=== PATIENT | male | born 1950 | race Caucasian/White ===

== ENCOUNTER 2017-04-08 16:15 | Emergency (ER) | payer MEDICARE ==
[~2017-04-08] VITALS: Ht 182.9 cm; Wt 98.0 kg
[~2017-04-08 16:15] MED LIST: ACYC5OIN TOP; ALBU17IN INH; AMIO20TA PO; AMLO2.5T PO; AMOX875T2 PO; ATOR40TA PO; AVEL1TAB PO; AZEL0.1S3; BISO5TAB5 PO; CARD120C3 PO; CORD200T PO; DIGO0.25 PO; DILT120C82 PO; DILT120T PO; DILT12SRCA PO; DILT60TA PO; ELIQ2.5T PO; ELIQ5TAB PO; FOLI400T PO; IRON65TA PO; LATA5OPD OU; LISI-542 PO; LISI10TA4 PO; LORA10TA2 PO; MONT10TA2 PO; OMEP20CA3 PO; PRED10TA PO; REFR1DRO8 OU; SIMV40TA2 PO; SPIR1CAP INH; SYMB16INH INH; THEO1CAP2 PO; THEO1CAP5 PO; THEO1TAB3 PO; THEOPHYLLINE E400 MG PO; VITA100066 PO; VITMTA PO; XANA0.5T PO
[2017-04-08 17:01] LABS: BASO % 0.6 % (0.0-1.0); EOS # 0.2 K/mm3 (0.0-0.50); LARGE UNSTAINED CELL # 0.1 K/mm3 (0.0-0.4); LARGE UNSTAINED CELL % 1.6 % (0.0-4.0); LYMPH # 1.5 K/mm3 (1.5-4.5); LYMPH % 18.9 % (24.0-44.0); MEAN CORPUSCULAR HEMOGLOBIN 31.3 pg (27.0-33.0); MEAN CORPUSCULAR HGB CONC 32.6 g/dl (32.0-36.5); MEAN CORPUSCULAR VOLUME 96.1 fl (80.0-96.0); MONO # 0.5 K/mm3 (0.0-0.8); MONO % 6.5 % (0.0-5.0); NEUTROPHILS # 5.1 K/mm3 (1.8-7.7); NEUTROPHILS % 69.4 % (36.0-66.0); PLATELET COUNT, AUTOMATED 166 k/mm3 (150-450); RED CELL DISTRIBUTION WIDTH 14.3 % (11.5-14.5); WHITE BLOOD COUNT 7.3 K/mm3 (4.0-10.0)
[2017-04-08 17:26] LABS: ALBUMIN 3.8 GM/DL (3.2-5.2); ALBUMIN/GLOBULIN RATIO 1.19 (1.00-1.93); ALKALINE PHOSPHATASE 70 U/L (45-117); ALT/SGPT 55 U/L (12-78); ANION GAP 4 MEQ/L (8-16); AST/SGOT 22 U/L (15-37); BILIRUBIN,DIRECT 0.1 MG/DL (0.0-0.2); BILIRUBIN,TOTAL 0.4 MG/DL (0.2-1.0); BLOOD UREA NITROGEN 16 MG/DL (7-18); CALCIUM LEVEL 9.4 MG/DL (8.8-10.2); CARBON DIOXIDE LEVEL 34 MEQ/L (21-32); CHLORIDE LEVEL 101 MEQ/L (98-107); CREATININE FOR GFR 1.09 MG/DL (0.70-1.30); GLOMERULAR FILTRATION RATE > 60.0 (>49); GLUCOSE, FASTING 115 MG/DL (80-110); POTASSIUM SERUM 4.2 MEQ/L (3.5-5.1); SODIUM LEVEL 139 MEQ/L (136-145)
--- NOTE | 2017-04-08 17:28 | REP ---
ABDOMINAL SERIES: Supine and erect views of the abdomen and pelvis demonstrate no free air and no evidence for small bowel obstruction. There is moderate fecal material in the transverse and right colon. Metallic clips are seen in the right upper quadrant. There are mild degenerative changes of the spine. An accompanying view of the chest demonstrates chronic fibrotic changes, bilaterally with no evidence of acute infiltrate. There is a right central venous catheter with the tip in the superior vena cava. Heart is not enlarged. Left dual lead pacemaker is again noted unchanged in position. IMPRESSION: Moderate fecal material in the transverse and right colon. No free air or small bowel obstruction. Chronic changes in the lungs as discussed above. Signed by William Espinosa MD 04/08/2017 07:50 P
[2017-04-08] MEDS ORDERED: MIRA3350 PO (17:54)
[2017-04-08] MEDS ORDERED: MAGNESIUM CITRATE 300 ML BTL PO ONE (18:00)
[2017-04-08 18:15] VITALS: BP 129/89
== END 2017-04-08 18:16 | disposition home or self-care (01) ==
LOC: M ED 16:59
DX: K59.00 Constipation, unspecified (principal); I10 Essential (primary) hypertension; E78.5 Hyperlipidemia, unspecified; F41.9 Anxiety disorder, unspecified; Z87.442 Personal history of urinary calculi; G47.30 Sleep apnea, unspecified; Z85.118 Personal history of other malignant neoplasm of bronchus and lung; Z95.0 Presence of cardiac pacemaker; Z87.891 Personal history of nicotine dependence; Z79.899 Other long term (current) drug therapy

== ENCOUNTER → 2017-04-22 | Outpatient (CLI) | payer MEDICARE ==
[~2017-04-22] MED LIST changes: +AMIO200T PO; -AMIO20TA PO; -ATOR40TA PO; +ATOR40TA75 PO; -AVEL1TAB PO; +AVEL1TAB3 PO; +MIRA3350 PO; +THEO400T PO; -THEOPHYLLINE E400 MG PO
[2017-04-22 13:42] LABS: ALBUMIN/GLOBULIN RATIO 1.29 (1.00-1.93); ALKALINE PHOSPHATASE 64 U/L (45-117); ALT/SGPT 52 U/L (12-78); ANION GAP 5 MEQ/L (8-16); AST/SGOT 22 U/L (15-37); BILIRUBIN,TOTAL 0.5 MG/DL (0.2-1.0); BLOOD UREA NITROGEN 19 MG/DL (7-18); CALCIUM LEVEL 9.4 MG/DL (8.8-10.2); CARBON DIOXIDE LEVEL 34 MEQ/L (21-32); CHLORIDE LEVEL 102 MEQ/L (98-107); CHOLESTEROL LEVEL 128 MG/DL (<200); CREATININE FOR GFR 1.15 MG/DL (0.70-1.30); GLOMERULAR FILTRATION RATE > 60.0 (>49); GLUCOSE, FASTING 98 MG/DL (80-110); POTASSIUM SERUM 4.7 MEQ/L (3.5-5.1); SODIUM LEVEL 141 MEQ/L (136-145); TOTAL PROTEIN 7.1 GM/DL (6.4-8.2); TRIGLYCERIDES LEVEL 76 MG/DL (<150)
== END ==
LOC: M WUC 10:23
PROVIDERS: ATTEND Physician Assistant Medical
DX: I47.1 Supraventricular tachycardia (principal); I25.10 Atherosclerotic heart disease of native coronary artery without angina pectoris

== ENCOUNTER 2018-09-21 15:31 | Emergency (ER) | payer MEDICARE ==
[2018-09-21] MEDS: ALBUTEROL SULFATE 2.5 MG/0.5 ML INH NEB SOLN INH (16:20)
[2018-09-21] MEDS: IPRATROPIUM 0.5MG/ALBUTEROL 2.5MG INH SOL UD 3ML (DUONEB)(J7620) NEB (16:21)
[2018-09-21 16:23] LABS: ABG BASE EXCESS 5.2 (-2.0-2.0); ABG O2 SATURATION 98.1 % (95.0-99.0); ABG PARTIAL PRESSURE CO2 56.3 mmHg (35.0-45.0); ABG STANDARD HCO3 29.2 MEQ/L (22.0-26.0); ABG TOTAL CO2 33.8 MEQ/L (23.0-31.0); ABG pH (ARTERIAL) 7.373 UNITS (7.350-7.450)
[2018-09-21 16:33] LABS: BASO % 0.4 % (0.0-1.0); EOS # 0.2 10^3/uL (0.0-0.50); EOS % 2.5 % (0.0-3.0); HEMATOCRIT 41.5 % (42.0-52.0); HEMOGLOBIN 13.5 g/dl (13.5-17.5); IMMATURE GRANULOCYTE % 1.1 % (0-3.0); LYMPH # 0.6 10^3/uL (1.5-4.5); LYMPH % 8.2 % (24.0-44.0); MEAN CORPUSCULAR HEMOGLOBIN 31.8 pg (27.0-33.0); MEAN CORPUSCULAR HGB CONC 32.5 g/dl (32.0-36.5); MEAN CORPUSCULAR VOLUME 97.6 fl (80.0-96.0); MONO # 0.8 10^3/uL (0.0-0.8); MONO % 10.8 % (0.0-5.0); NEUTROPHILS # 5.5 10^3/uL (1.8-7.7); PLATELET COUNT, AUTOMATED 209 10^3/uL (150-450); RED BLOOD COUNT 4.25 10^6/uL (4.30-6.10); RED CELL DISTRIBUTION WIDTH 13.6 % (11.5-14.5); WHITE BLOOD COUNT 7.2 10^3/uL (4.0-10.0)
[2018-09-21] MEDS: methylPREDNISolone INJ 125 MG/2 ML VIAL (J2930) IV (16:54)
[2018-09-21 17:12] LABS: INFLUENZA A AMPLIFICATION NEGATIVE (NEGATIVE); INFLUENZA B AMPLIFICATION NEGATIVE (NEGATIVE)
[2018-09-21 17:13] LABS: LACTIC ACID SEPSIS PROTOCOL 1.3 MMOL/L (0.4-2.0)
[2018-09-21 17:20] LABS: ALBUMIN 3.1 GM/DL (3.2-5.2); ALBUMIN/GLOBULIN RATIO 0.91 (1.00-1.93); ALKALINE PHOSPHATASE 74 U/L (45-117); ALT/SGPT 39 U/L (12-78); ANION GAP 4 MEQ/L (8-16); AST/SGOT 17 U/L (7-37); BILIRUBIN,DIRECT 0.1 MG/DL (0.0-0.2); BILIRUBIN,TOTAL 0.5 MG/DL (0.2-1.0); BLOOD UREA NITROGEN 21 MG/DL (7-18); CARBON DIOXIDE LEVEL 35 MEQ/L (21-32); CHLORIDE LEVEL 100 MEQ/L (98-107); CK-MB VALUE MASS < 1.0 NG/ML (<3.6); CPK CREATINE PHOSPHOKINASE 42 U/L (39-308); CREATININE FOR GFR 1.01 MG/DL (0.70-1.30); GLOMERULAR FILTRATION RATE > 60.0 (>42); GLUCOSE, FASTING 164 MG/DL (70-100); MB/CK RELATIVE INDEX 2.38 (< OR =4); NT-PRO BNP 110 PG/ML (<125); POTASSIUM SERUM 4.8 MEQ/L (3.5-5.1); SODIUM LEVEL 139 MEQ/L (136-145); THYROID STIMULATING HORMONE 0.564 uIU/ML (0.358-3.740); THYROXINE (T4) 9.8 UG/DL (4.5-12.0); TOTAL PROTEIN 6.5 GM/DL (6.4-8.2); TROPONIN I < 0.02 NG/ML (< 0.10)
[2018-09-21] MEDS ORDERED: ISOVUE-370 76% 100ML VIAL (Q9967) As Ordered (18:32)
[2018-09-21] MEDS: CEFUROXIME SODIUM 1.5 GM in D5W MINI-BAG PLUS 50 ML IV (21:14)
== END 2018-09-21 22:36 | disposition home or self-care (01) ==
LOC: M ED 15:31
DX: J44.1 Chronic obstructive pulmonary disease with (acute) exacerbation (principal); C34.90 Malignant neoplasm of unspecified part of unspecified bronchus or lung; R91.8 Other nonspecific abnormal finding of lung field; I48.91 Unspecified atrial fibrillation; Z99.81 Dependence on supplemental oxygen; Z87.442 Personal history of urinary calculi; Z87.891 Personal history of nicotine dependence; Z85.46 Personal history of malignant neoplasm of prostate; Z79.899 Other long term (current) drug therapy; Z79.51 Long term (current) use of inhaled steroids
CPT/HCPCS: Q9967

== ENCOUNTER 2020-03-18 20:30 | Inpatient (IN) | payer MEDICARE ==
[~2020-03-18] VITALS: Ht 182.9 cm; Wt 94.5 kg
[~2020-03-18 20:30] MED LIST changes: -AMLO2.5T PO; +AMLO2.5T3 PO; +BISO5TAB14 PO; -BISO5TAB5 PO; +CEFU50TA PO; -DILT120C82 PO; +DILT1CAP PO; +LATA0.0013 OU; -LATA5OPD OU; -LORA10TA2 PO; +LORA10TA3 PO; -MONT10TA2 PO; +MONT10TA4 PO; +OMEP1CAP73 PO; -OMEP20CA3 PO; +PRED-351 PO; -PRED10TA PO; -SIMV40TA2 PO; +SIMV40TA20 PO; -THEO1TAB3 PO; +THEO200T12 PO
[2020-03-18] MEDS ORDERED: ATORVASTATIN 20 MG TAB PO SCH (21:00)
[2020-03-18] MEDS ORDERED: LATANOPROST 0.005% OPHTH SOLN 2.5 ML OU SCH (21:00)
[2020-03-18] MEDS ORDERED: VITAMIN D 1,000 INTERNATIONAL UNITS TABLET PO SCH (21:00)
[2020-03-18 21:15] LABS: BASO # 0.1 10^3/uL (0.0-0.2); BASO % 0.6 % (0.0-1.0); EOS # 0.3 10^3/uL (0.0-0.5); EOS % 4.3 % (0.0-3.0); HEMOGLOBIN 14.8 g/dl (13.5-17.5); LYMPH # 1.8 10^3/uL (1.5-5.0); MEAN CORPUSCULAR HGB CONC 32.2 g/dl (32.0-36.5); MEAN CORPUSCULAR VOLUME 96.4 fl (80.0-96.0); MONO # 0.8 10^3/uL (0.0-0.8); MONO % 9.4 % (0.0-5.0); NEUTROPHILS % 63.3 % (36.0-66.0); PLATELET COUNT, AUTOMATED 165 10^3/uL (150-450); RED BLOOD COUNT 4.77 10^6/uL (4.30-6.10)
[2020-03-18 21:48] LABS: ALBUMIN 4.1 GM/DL (3.2-5.2); ALT/SGPT 34 U/L (12-78); BILIRUBIN,DIRECT 0.2 MG/DL (0.0-0.2); BILIRUBIN,TOTAL 0.5 MG/DL (0.2-1.0); BLOOD UREA NITROGEN 19 MG/DL (7-18); CALCIUM LEVEL 9.1 MG/DL (8.8-10.2); CARBON DIOXIDE LEVEL 33 MEQ/L (21-32); CHLORIDE LEVEL 102 MEQ/L (98-107); CK-MB VALUE MASS 1.3 NG/ML (<3.6); CPK CREATINE PHOSPHOKINASE 64 U/L (39-308); CREATININE FOR GFR 1.05 MG/DL (0.70-1.30); DIGOXIN LEVEL 0.9 NG/ML (0.5-2.0); GLOMERULAR FILTRATION RATE > 60.0 (>42); GLUCOSE, FASTING 117 MG/DL (70-100); MB/CK RELATIVE INDEX 2.03 (< OR =4); POTASSIUM SERUM 4.2 MEQ/L (3.5-5.1); SODIUM LEVEL 141 MEQ/L (136-145); THEOPHYLLINE LEVEL 10.5 UG/ML (10.0-20.0); TOTAL PROTEIN 7.3 GM/DL (6.4-8.2); TROPONIN I < 0.02 NG/ML (< 0.10)
[2020-03-18] MEDS ORDERED: AMIODARONE HCL 150 MG in IV 1 EA IV STA (22:20)
[2020-03-18] MEDS ORDERED: ELIQ5TAB PO (22:54)
[2020-03-18] MEDS ORDERED: DIGO0.123 PO (22:54)
[2020-03-19] MEDS ORDERED: AMIODARONE HCL 150 MG in IV 1 EA IV STA (00:38)
[2020-03-19] MEDS ORDERED: XALA0.007 OU (01:28)
[2020-03-19] MEDS ORDERED: VITAD1000T PO (01:28)
[2020-03-19] MEDS ORDERED: VENTAER INH (01:28)
[2020-03-19] MEDS ORDERED: MUCI30TA5 PO (01:31)
[2020-03-19] MEDS ORDERED: MULTCAP PO (01:31)
--- NOTE | 2020-03-19 01:32 | HPEPDOC ---
[facility] Medical History & Physical Date of Admission March 19, 2020 Date of Service: March 19, 2020 Attending Physician: Nani Duval MD History and Physical CHIEF COMPLAINT: Palpitations HISTORY OF PRESENT ILLNESS: Patient is a 69-year-old male with past medical history of atrial fibrillation with pacemaker, COPD oxygen dependent, hyperlipidemia, GERD, solitary kidney, history of stage IV lung cancer in remission who presented to [facility] emergency room after having chest palpitations and fluctuating heart rates. Patients says his HR has been fluctuating over the past several days. HR was 60 then up to 130's, irregular. Patient has a PM and he knows that when his heart rate fluctuates he needs to be seen. This is what brought him in today. He was seen within the last 2 weeks in regards his pacemaker and at that time it checked out okay. Patient states that his balance is not as great as it used to be, mainly due to neuropathy patient but this is not an acute issue. The patient has COPD and states to have chronic shortness of breath and cough. He has not noticed a change with the chronic cough, occasionally productive of a yellowish- colored sputum. ROS belowl In the ER, HR as high as 120. Given amiodarone 150 mg IV x 2, diltiazem 60 mg x 2. HR remained 115-120. ECG showed atrial fib with RVR, RBBB with no acute changes when compared to last on file. CXR showed no acute cardiopulmonary concerns. Troponin neg, CBC/BMP were unremarkable. There was concern for his PM not functioning appropriately. Dr. Byrnes, satellite television installer, is the patient's regular satellite television installer and he was contacted, case was discussed. HR 120's on the bedside monitor but now asymptomatic. Patient as admitted atrial fibrillation with RVR, requiring pacemaker reprogramming. REVIEW OF SYSTEMS: CONSTITUTIONAL: Denies lack of energy, unexplained weight gain or weight loss, loss of appetite, fever, night sweats EYES: Denies eye drainage, eye pain, visual changes, dry/irritated eye EARS, NOSE, MOUTH, THROAT: Denies difficulty hearing, ringing in ears, mouth sores, loose teeth, sore throat, facial numbness or pain NECK: Denies swollen glands CARDIOVASCULAR: Denies chest pains, swelling of feet or legs, pain in legs with walking RESPIRATORY: Denies shortness of breath, night sweats, wheezing, sputum production, oxygen at home, coughing up blood, cough lasting > 1 month GASTROINTESTINAL: Denies abdominal pain, constipation, bloody stool, diarrhea, heartburn, nausea, vomiting GENITOURINARY: Denies painful urination, bloody urine, frequent urination, urgency, leaking urine, impotence MUSCULOSKELETAL: Denies joint pain, muscle pain, leg swelling INTEGUMENTARY: Denies rash, itching, new skin lesion, change in existing skin lesion, hair loss or increase, breast changes. NEUROLOGICAL: Denies headaches, dizziness, difficulty walking, numbness or tingling PSYCHIATRIC: Denies depression, recurrent bad thoughts, mood swings, hallucinations PAST MEDICAL HISTORY: 1. Atrial fibrillation with PM, last PM check approx 1-2 weeks ago 2. COPD on 2 L NC at rest, with activity can go up to 10 L NC 3. HLD 4. Dry eyes 5. Glaucoma 6. GERD 7. Solitary kidney 8. Hx of Stage 4 lung cancer s/p chemotherapy and radiation PAST SURGICAL HISTORY: 1. Prostectomy 2. Right nephrectomy 3. Kidney stone removal 4. Right lung biopsy FAMILY HISTORY: Father: CHF, CAD. at 83 y/o Mother: colon cancer. at 72 y/o Siblings: Brother-kidney disease. 54 y/o. SOCIAL HISTORY: Smoker for 45 years, 1-2 PPD. Quit 10 years ago. Social alcohol use. Denies illicit drug use. PCP- [place] Charlie. 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 [facility]. Heme/Onc- [facility]. Lives alone in the local area. Full Code. HCP- Mary See ALLERGIES: Please see below. HOME MEDICATIONS: Please see below. PHYSICAL EXAMINATION: CONSTITUTIONAL: No acute distress, resting comfortably, AAO x 3 EYES: PERRLA, EOM intact HENT, MOUTH: Normocephalic, atraumatic, moist mucous membranes, NECK: SUPPLE, no JVD, no lymphadenopathy, no carotid bruit CV: irregularly irregular rhythm, tachycardic, S1S2 normal, no murmurs/rubs/gallops CHEST: Pacemaker RESPIRATORY: Clear to auscultation bilaterally, no rales/rhonchi/wheezes GI: BS positive in 4 quadrants, soft, nontender, nondistended, no rebound or guarding, no organomegaly : Deferred MUSCULOSKELETAL: Normal ROM. No cyanosis, clubbing, swelling, joint deformity, extremity edema INTEGUMENTARY: Intact, no rashes, no lesions, no erythema NEUROLOGIC: Cranial Nerves II-XII are intact, no focal deficits PSYCHIATRIC: Mood and affect are normal LABORATORY DATA: Please see below IMAGING: CXR: No acute cardiopulmonary findings ECG: Atrial fibrillation with RVR, marked right axis deviation, right bundle branch block, anteroseptal myocardial infarction of indeterminate age, ST depression consider subendocardial injury, abnormal ECG. When compared to prior ECG this was similar. ASSESSMENT: Patient is a 69 y/o M admitted for atrial fibrillation with RVR, requiring pacemaker reprogramming. PLAN: 1. Atrial fibrillation with RVR. HR still 120's. Cardiology to see in the AM, reprogram pacemaker. C/w home digoxin, eliquis, BB, amiodarone. Cardiology consulted. 2. COPD. O2 dependent using 2-10 L at home. Not currently in exacerbation. C/w home medications. 3. HLD. C/w statin. 4. GERD. 5. Solitary kidney. Cr wnl. F/u daily labs. 6. Hx of Stage 4 lung cancer. Has been in remission. F/u with heme/onc as o/p. 7. Anxiety. Currently stable. Ativan PRN home med. 8. DVT px. Eliquis BID. DISPOSITION: Cardiology consulted to see patient in AM and make pacemaker adjustments. Plan is discharge when medically improved. Vital Signs Vital Signs Date Time Temp Pulse Resp B/P (MAP) Pulse Ox O2 Delivery O2 Flow Rate FiO2 03/19/20 00:33 20 101/73 (82) 03/19/20 00:31 124 97 Room Air 4.0 03/18/20 22:42 98.5 Laboratory Data Labs 24H Laboratory Tests 2 03/18/20 21:01: Immature Granulocyte % (Auto) 0.4, Neutrophils (%) (Auto) 63.3, Lymphocytes (%) (Auto) 22.0L, Monocytes (%) (Auto) 9.4H, Eosinophils (%) (Auto) 4.3H, Basophils (%) (Auto) 0.6, Neutrophils # (Auto) 5.0, Lymphocytes # (Auto) 1.8, Monocytes # (Auto) 0.8, Eosinophils # (Auto) 0.3, Basophils # (Auto) 0.1, Nucleated Red Blood Cells % (auto) 0.0, Anion Gap 6L, Glomerular Filtration Rate > 60.0, Calcium Level 9.1, Total Bilirubin 0.5, Direct Bilirubin 0.2, Aspartate Amino Transf (AST/SGOT) 15, Alanine Aminotransferase (ALT/SGPT) 34, Alkaline Phosphatase 75, Total Creatine Kinase 64, Creatine Kinase MB 1.3, Creatine Kinase MB Relative Index 2.03, Troponin I < 0.02, Total Protein 7.3, Albumin 4.1, Albumin/Globulin Ratio 1.3, Thyroid Stimulating Hormone (TSH) 1.790, Digoxin Level 0.9, Theophylline Level 10.5 CBC/BMP Laboratory Tests 03/18/20 21:01 Home Medications Scheduled Amiodarone HCl (Amiodarone HCl) 200 Mg Tab, 200 MG PO DAILY Apixaban (Eliquis) 5 Mg Tablet, 5 MG PO BID Atorvastatin Calcium (Atorvastatin Calcium) 40 Mg Tab, 40 MG PO QHS Bisoprolol Fumarate (Bisoprolol Fumarate) 5 Mg Tab, 5 MG PO BID Budesonide/Formoterol (Symbicort 160-4.5 Mcg Inhaler) 60 Puff/Inhaler Aers, 2 PUFF INH BID Cholecalciferol (Vitamin D3) (Vitamin D3) 1,000 Unit Tablet, 1,000 UNITS PO QHS Digoxin (Digoxin) 125 Mcg Tablet, 125 MCG PO DAILY Latanoprost (Xalatan) 0.005% 2.5ML Drops, 1 DROP OU QHS Montelukast Sodium (Montelukast Sodium) 10 Mg Tab, 10 MG PO DAILY Multivitamin (Multivitamins) 1 Each Capsule, 1 CAP PO DAILY Omeprazole (Omeprazole) 20 Mg Cap, 20 MG PO DAILY Theophylline Anhydrous (Theophylline) 400 Mg Tab, 400 MG PO DAILY Tiotropium [place] (Spiriva) 18 Mcg Cap, 1 INHALATION INH DAILY Scheduled PRN Albuterol Sulfate (Ventolin Hfa) 18 Gm Hfa.aer.ad, 2 PUFF INH Q4-6HP PRN for wheezing Alprazolam (Xanax) 0.5 Mg Tab, 0.5 MG PO BID PRN for ANXIETY Guaifenesin/Dextromethorphan (Mucinex Dm ER 600-30 mg Tablet) 1 Each Tab.er.12h, 1 TAB PO BID PRN for cough and congestion Loratadine (Loratadine) 10 Mg Tab, 10 MG PO DAILY PRN for allergies Polyvinyl Alcohol/Povidone/Pf (Refresh Classic Eye Drops) 1 Ea Renetta, 1 DROP OU PRN PRN for DRY EYES Allergies Coded Allergies: No Known Allergies (Unverified , 09/11/15) A-FIB/CHADSVASC A-FIB History Current/History of A-Fib/PAF?: Yes Current PO Anticoag Therapy: Yes Age/Risk Factor Scoring CHADSVASC: CHADSVASC Response (Comments) Value Age Risk Factor Age 65-74 years old 1 Gender Risk Factor Male 0 Hx of CHF No 0 Hx of HTN No 0 Hx of Stroke/TIA/or VTE No 0 Hx of Diabetes No 0 Hx of Vascular Disease No 0 Total 1 Treatment Treatment ordered: Apixaban Nani Duval MD March 19, 2020 01:32
[2020-03-19] MEDS ORDERED: ALBUTEROL 90 MCG/ACT 8GM HFA INHALER INH PRN (01:45)
[2020-03-19] MEDS ORDERED: ALPRAZolam 0.5 MG TAB PO PRN (01:45)
[2020-03-19] MEDS ORDERED: LORATADINE 10 MG TAB PO PRN (01:45)
[2020-03-19] MEDS ORDERED: ALBUTEROL SULFATE 2.5 MG/0.5 ML INH NEB SOLN NEB PRN (02:15)
[2020-03-19 03:00] VITALS: BP 157/83
[2020-03-19] MEDS: bisoproloL fumarate 5 MG TAB PO SCH ×2 (03:08→10:01)
[2020-03-19] MEDS: APIXABAN 5 MG TAB (ELIQUIS) PO SCH ×2 (03:08→10:01)
[2020-03-19 03:48] LABS: TROPONIN I < 0.02 NG/ML (< 0.10)
[2020-03-19 04:08] LABS: HEMATOCRIT 44.8 % (42.0-52.0); HEMOGLOBIN 14.5 g/dl (13.5-17.5); MEAN CORPUSCULAR HEMOGLOBIN 30.7 pg (27.0-33.0); MEAN CORPUSCULAR HGB CONC 32.4 g/dl (32.0-36.5); MEAN CORPUSCULAR VOLUME 94.7 fl (80.0-96.0); PLATELET COUNT, AUTOMATED 178 10^3/uL (150-450); RED BLOOD COUNT 4.73 10^6/uL (4.30-6.10); WHITE BLOOD COUNT 7.9 10^3/uL (4.0-10.0)
[2020-03-19 04:21] LABS: ALBUMIN 3.7 GM/DL (3.2-5.2); ALT/SGPT 30 U/L (12-78); BILIRUBIN,TOTAL 0.3 MG/DL (0.2-1.0); BLOOD UREA NITROGEN 18 MG/DL (7-18); CARBON DIOXIDE LEVEL 32 MEQ/L (21-32); CHLORIDE LEVEL 105 MEQ/L (98-107); CREATININE FOR GFR 1.05 MG/DL (0.70-1.30); GLOMERULAR FILTRATION RATE > 60.0 (>42); GLUCOSE, FASTING 112 MG/DL (70-100); POTASSIUM SERUM 4.5 MEQ/L (3.5-5.1); SODIUM LEVEL 141 MEQ/L (136-145); TOTAL PROTEIN 6.8 GM/DL (6.4-8.2)
--- NOTE | 2020-03-19 07:34 | ECGEPIP ---
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
--- NOTE | 2020-03-19 07:34 | ECGEPIP ---
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
[2020-03-19 08:00] VITALS: BP 132/82
[2020-03-19] MEDS ORDERED: TIOTROPIUM INHALER/CAPSULE (SPIRIVA) INH SCH (08:00)
[2020-03-19] MEDS ORDERED: SYMBICORT 160/4.5MCG INHALER 6GM INH SCH (08:00)
[2020-03-19] MEDS ORDERED: AMIODARONE 200 MG TAB (PACERONE) PO SCH (09:00)
[2020-03-19] MEDS ORDERED: THEOPHYLLINE (THEO-24) 100MG SR **CAPSULE PO SCH (09:00)
[2020-03-19] MEDS ORDERED: MULTIVITAMINS/MINERALS THERAP 1 TAB PO SCH (09:00)
[2020-03-19] MEDS ORDERED: OMEPRAZOLE 20 MG CAP PO SCH (09:00)
[2020-03-19] MEDS ORDERED: MONTELUKAST 10 MG TAB PO SCH (09:00)
[2020-03-19] MEDS ORDERED: DIGOXIN 0.125 MG TAB PO SCH (09:00)
--- NOTE | 2020-03-19 09:11 | IPNPDOC ---
Text Note Date of Service The patient was seen on 03/19/20. NOTE Subjective: Patient is a 69-year-old male with a PMHx of A. fib s/p PM, COPD on O2, Stage IV Lung CA, DLP, GERD, Solitary Kidney, GERD, presented to emergency Medical Center after having palpitations and fluctuating heart rates. In the emergency room, patient was found to have a heart rate of 130.. She was admitted to the hospital service for further evaluation and treatment. Cardiology was called on consultation Patient was seen and examined at the bedside. Currently, he denies any chest pain, shortness breath or palpitations. He denies nausea, vomiting, abdominal pain, diarrhea, constipation, or urinary discomfort. Objective: Vitals (See below) General: Lying in bed, no acute distress, comfortable, AAOx3 HEENT: NC, AT CVS: IrIr +S1S2 Lungs: Fair air entry b/l, -w/r/r Abdomen: Soft, ND, NT Extremities: - Edema, - Calf tenderness Assessment and plan: Palpitations - likely 2/2 Atrial fibrillation with RVR - Currently patient denies any significant palpitations - Remains hemodynamically stable and afebrile - Heart rate remains in the 120s - Cardiac markers are negative - s/p Digoxin 60 mg PO x2, Amiodarone IV 150mg x2 - c/w rate / rhythm control with amidorone, digoxin, bisoprolol - c/w full anticoagulation with Eliquis - Cardiology has been consulted; awaiting input Pacemaker - Patient does have pacemaker that will require interrogation with cardiology today - Cardiology has been consulted; awaiting input COPD - Patient uses 2-10 L nasal cannula at baseline - No evidence of exacerbation - c/w inhaled therapy as ordered DLP - c/w Atorvastatin Solitary kidney - Cr appears to be at baseline - Will continue to follow Stage IV Lung cancer - Reported to be in remission - Will have outpatient follow up with Oncology Vitamin Deficiency - c/w Supplementation Anxiety - c/w Alprazolam GI prophylaxis - c/w Omeprazole DVT prophylaxis - c/w Eliquis Disposition: - Cardiology consulted to see patient in AM and make pacemaker adjustments - Plan is discharge when medically improved. VS,Fishbone, I+O VS, Fishbone, I+O Laboratory Tests 03/18/20 21:01 03/19/20 03:08 03/19/20 03:11 Vital Signs Date Time Temp Pulse Resp B/P (MAP) Pulse Ox O2 Delivery O2 Flow Rate FiO2 03/19/20 04:00 2.0 03/19/20 03:08 122 134/83 03/19/20 03:00 97.8 16 94 Nasal Cannula SHRUTHI NUGENT MD March 19, 2020 09:11
[2020-03-19 10:01] VITALS: BP 132/82
--- NOTE | 2020-03-19 11:33 | DS.PDOC ---
Discharge Summary General Date of Admission March 19, 2020 at 01:45 Date of Discharge 03/19/2020 Discharge Summary PROCEDURES PERFORMED DURING STAY: [None]. ADMITTING DIAGNOSES / DISCHARGE DIAGNOSES: Palpitations - likely 2/2 Atrial fibrillation with RVR Pacemaker COPD DLP Solitary kidney Stage IV Lung cancer Vitamin Deficiency Anxiety GI prophylaxis DVT prophylaxis COMPLICATIONS/CHIEF COMPLAINT: Palpitations HISTORY OF PRESENT ILLNESS: Patient is a 69-year-old male with a PMHx of A. fib s/p PM, COPD on O2, Stage IV Lung CA, DLP, GERD, Solitary Kidney, GERD, presented to emergency Medical Center after having palpitations and fluctuating heart rates. In the emergency room, patient was found to have a heart rate of 130.. She was admitted to the hospital service for further evaluation and treatment. Cardiology was called on consultation HOSPITAL COURSE: Palpitations - likely 2/2 Atrial fibrillation with RVR - Currently patient denies any significant palpitations - Remains hemodynamically stable and afebrile - Heart rate has improved after PM parameters were adjusted - Cardiac markers are negative - s/p Digoxin 60 mg PO x2, Amiodarone IV 150mg x2; Will DC Digoxin - c/w rate / rhythm control with amiodarone and bisoprolol - c/w full anticoagulation with Eliquis - Cardiology has been consulted; appreciate their input Pacemaker - PM parameters were adjusted by cardiology - HR is currently well controlled - Cardiology has been consulted; awaiting input COPD - Patient uses 2-10 L nasal cannula at baseline - No evidence of exacerbation - c/w inhaled therapy as ordered DLP - c/w Atorvastatin Solitary kidney - Cr appears to be at baseline - Will continue to follow Stage IV Lung cancer - Reported to be in remission - Will have outpatient follow up with Oncology Vitamin Deficiency - c/w Supplementation Anxiety - c/w Alprazolam GI prophylaxis - c/w Omeprazole DVT prophylaxis - c/w Eliquis DISCHARGE MEDICATIONS: Please see below. ALLERGIES: Please see below. PHYSICAL EXAMINATION ON DISCHARGE: Vitals (See below) General: Lying in bed, no acute distress, comfortable, AAOx3 HEENT: NC, AT CVS: IrIr +S1S2 Lungs: Fair air entry b/l, no rhonchi / crackles / wheezing Abdomen: Soft, ND, NT Extremities: no evidence of edema, - Calf tenderness LABORATORY DATA: Please see below. ACTIVITY: [As tolerated]. DISCHARGE PLAN: Follow up with PCP and Dr. Byrnes within 7 days Remain compliant with treatment plan and medications Return to the ER if you experience any problems DISPOSITION: Home DISCHARGE CONDITION: [Stable]. TIME SPENT ON DISCHARGE: 35 minutes. Vital Signs/I&Os Vital Signs Date Time Temp Pulse Resp B/P (MAP) Pulse Ox O2 Delivery O2 Flow Rate FiO2 03/19/20 10:01 122 03/19/20 10:01 132/82 03/19/20 08:00 97.2 18 96 Nasal Cannula 2.0 Laboratory Data Labs 24H Laboratory Tests 2 03/18/20 21:01: Immature Granulocyte % (Auto) 0.4, Neutrophils (%) (Auto) 63.3, Lymphocytes (%) (Auto) 22.0L, Monocytes (%) (Auto) 9.4H, Eosinophils (%) (Auto) 4.3H, Basophils (%) (Auto) 0.6, Neutrophils # (Auto) 5.0, Lymphocytes # (Auto) 1.8, Monocytes # (Auto) 0.8, Eosinophils # (Auto) 0.3, Basophils # (Auto) 0.1, Nucleated Red Blood Cells % (auto) 0.0, Anion Gap 6L, Glomerular Filtration Rate > 60.0, Calcium Level 9.1, Total Bilirubin 0.5, Direct Bilirubin 0.2, Aspartate Amino Transf (AST/SGOT) 15, Alanine Aminotransferase (ALT/SGPT) 34, Alkaline Phosphatase 75, Total Creatine Kinase 64, Creatine Kinase MB 1.3, Creatine Kinase MB Relative Index 2.03, Troponin I < 0.02, Total Protein 7.3, Albumin 4.1, Albumin/Globulin Ratio 1.3, Thyroid Stimulating Hormone (TSH) 1.790, Digoxin Level 0.9, Theophylline Level 10.5 03/19/20 03:08: Nucleated Red Blood Cells % (auto) 0.0 03/19/20 03:11: Anion Gap 4L, Glomerular Filtration Rate > 60.0, Calcium Level 9.0, Total Bilirubin 0.3, Aspartate Amino Transf (AST/SGOT) 19, Alanine Aminotransferase (ALT/SGPT) 30, Alkaline Phosphatase 69, Troponin I < 0.02, Total Protein 6.8, Albumin 3.7, Albumin/Globulin Ratio 1.2 CBC/BMP Laboratory Tests 03/18/20 21:01 03/19/20 03:08 03/19/20 03:11 Discharge Medications Scheduled Amiodarone HCl (Amiodarone HCl) 200 Mg Tab, 200 MG PO DAILY, (Reported) Apixaban (Eliquis) 5 Mg Tablet, 5 MG PO BID, (Reported) Atorvastatin Calcium (Atorvastatin Calcium) 40 Mg Tab, 40 MG PO QHS, (Reported) Bisoprolol Fumarate (Bisoprolol Fumarate) 5 Mg Tab, 5 MG PO BID, (Reported) Budesonide/Formoterol (Symbicort 160-4.5 Mcg Inhaler) 60 Puff/Inhaler Aers, 2 PUFF INH BID, (Reported) Cholecalciferol (Vitamin D3) (Vitamin D3) 1,000 Unit Tablet, 1,000 UNITS PO QHS, (Reported) Digoxin (Digoxin) 125 Mcg Tablet, 125 MCG PO DAILY, (Reported) Latanoprost (Xalatan) 0.005% 2.5ML Drops, 1 DROP OU QHS, (Reported) Montelukast Sodium (Montelukast Sodium) 10 Mg Tab, 10 MG PO DAILY, (Reported) Multivitamin (Multivitamins) 1 Each Capsule, 1 CAP PO DAILY, (Reported) Omeprazole (Omeprazole) 20 Mg Cap, 20 MG PO DAILY, (Reported) Theophylline Anhydrous (Theophylline) 400 Mg Tab, 400 MG PO DAILY, (Reported) Tiotropium [place] (Spiriva) 18 Mcg Cap, 1 INHALATION INH DAILY, (Reported) Scheduled PRN Albuterol Sulfate (Ventolin Hfa) 18 Gm Hfa.aer.ad, 2 PUFF INH Q4-6HP PRN for wheezing, (Reported) Alprazolam (Xanax) 0.5 Mg Tab, 0.5 MG PO BID PRN for ANXIETY, (Reported) Guaifenesin/Dextromethorphan (Mucinex Dm ER 600-30 mg Tablet) 1 Each Tab.er.12h, 1 TAB PO BID PRN for cough and congestion, (Reported) Loratadine (Loratadine) 10 Mg Tab, 10 MG PO DAILY PRN for allergies, (Reported) Polyvinyl Alcohol/Povidone/Pf (Refresh Classic Eye Drops) 1 Ea Renetta, 1 DROP OU PRN PRN for DRY EYES, (Reported) Allergies Coded Allergies: No Known Allergies (Unverified , 09/11/15) SHRUTHI NUGENT MD March 19, 2020:32
--- NOTE | 2020-03-19 12:52 | ECGEPIP ---
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
[2020-03-19] MEDS ORDERED: LATANOPROST 0.005% OPHTH SOLN 2.5 ML OU SCH (21:00)
--- NOTE | 2020-03-20 09:55 | REP ---
PORTABLE CHEST X-RAY: Two views. HISTORY: Chest pain. Preliminary report is provided at the time of the exam by Dr. Grimm. COMPARISON CHEST X-RAY: September 21, 2018. FINDINGS: A bipolar pacemaker remains in the right heart via the left side. Heart is not enlarged. Oxygen delivery tubing and monitoring electrodes are seen. A right-sided [id number] catheter is seen terminating in the expected location of the superior vena cava. There is a right hilar fullness again noted. There is linear fibrosis in the perihilar region on the right and advanced emphysematous changes are noted in the upper lobes bilaterally, right greater than left. No superimposed infiltrate is seen. Electronically Signed by Devan Salmeron MD 03/20/2020 11:02 A
--- NOTE | 2020-03-21 05:06 | CR ---
DATE OF CONSULTATION: 03/19/2020 CARDIOLOGY CONSULTATION: REFERRING PHYSICIAN: Dr. Braulio Gutierrez/Dr. Hammer. INDICATION: Tachycardia. HISTORY OF PRESENT ILLNESS: This 69-year-old father of two grown children, retired/disabled resident of [place], [place], who carter in [place], is well known to my cardiology practice with advanced smoking-induced obstructive lung disease, pulmonary fibrosis, lung cancer 2011 post chemotherapy/radiation, obstructive sleep apnea, chronic respiratory failure/on chronic home oxygen with nonobstructive coronary artery disease and hypertension. 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 He was last seen in our office 09/01/2019 and, from the cardiac standpoint, had been doing reasonably well. He had been using his stationary bicycle for 20 minutes daily. Dyspnea, of course, remained his chief effort-limiting symptom. Had been free of any chest, jaw, or arm discomforts. Had not been aware of any palpitations or dizziness. No symptoms to suggest embolic phenomenon or claudication. Had been trying to minimize caffeine and alcohol exposure. On combination amiodarone, bisoprolol therapies, his last pacer strips 11/24/2019 had shown no sign of atrial tachycardia or atrial fibrillation. On 12/09/2019, he was admitted to the [facility] in [place] because of recurrent paroxysmal atrial tachyarrhythmia/atrial fibrillation with rapid ventricular response, averaging 133 beats per minute (BPM). He was started on digoxin in addition to his amiodarone and bisoprolol with control of his ventricular rate. He was also started on Eliquis. His EKG was interpreted by cardiology as showing underlying atrial flutter with 2:1 atrioventricular (AV) conduction and rate approximately 130 BPM. Spontaneous QRS complex showed a right bundle branch block. ProBNP level was not outside normal limits for his age at 795. Chest x-ray did not appear to show any acute infiltrate but advanced bullous emphysema. CT angiogram showed no pulmonary emboli. Changes consistent with his prior lung cancer, prior surgery, and radiation therapy with very small pleural effusions versus parenchymal scar. Advanced emphysematous changes in both lungs. Echocardiogram reportedly showed normal left ventricular size and wall motion with normal left atrial size; however, moderately dilated right ventricle with mild hypokinesis and at least mild degree of pulmonary hypertension. No significant structural or functional valvular abnormality. Normal inferior vena cava (IVC) size and collapse against an elevated central venous pressure. At the time of discharge, had been feeling improved with heart rate in the 90s per minute with improved blood pressure control. His last remote pacemaker check 02/28/2020 showed a single bout of tachycardia at approximately 180-200 beats per minute with controlled ventricular response of 90 beats per minute. The episode lasted less than 1 minute. Patient was scheduled for an office followup appointment 04/05/2020 but presented to [facility] Emergency Room. Last evening at 8:38 p.m., he presented to [facility] Emergency Room with a complaint of intermittent palpitations the past few days, "heart rate jumping all over the place," varying from 60 to 130 with vague chest pressure but no shortness of breath or faintness. Initial vital signs showed a heart rate of 126 BPM, blood pressure 181/98, respiratory rate 16, oxygen saturation 100% on supplemental oxygen, and he was afebrile. Rhythm suspected to be atrial flutter with ventricular response 120 beats per minute and right bundle branch block. More prominent repolarization abnormalities associated with his tachycardia compared with old tracings. Despite doses of diltiazem in addition to his home amiodarone, bisoprolol, and digoxin, his heart rate did not change. Several doses of intravenous (IV) amiodarone were administered also without effect. He was admitted to a telemetry unit, and cardiology consultation was placed. Again, as mentioned above, patient describes having vague chest sensations with his tachycardia. He is aware of his heart action but claims his chronic effort dyspnea related to his lung disease has not changed. Denied any lightheadedness or faintness. No symptoms to suggest embolic phenomenon or hemorrhagic complication. No change in mild chronic lower leg swelling. No history of claudication. OTHER PAST KNOWN CARDIAC EVENTS/TESTS/PROBLEMS: August 2015, was admitted through the emergency room at [facility] with regular wide-complex tachycardia at 212 beats per minute with right bundle branch block (RBBB), QRS configuration. Echocardiogram at that time showed a moderately challenging study with borderline left ventricular hypertrophy (LVH), moderate global hypokinesis, left ventricular ejection fraction (LVEF) 30%, borderline left atrial enlargement with dilated and hypertrophied right ventricle, and pulmonary artery (PA) pressure that was at least mildly increased. Aortic valvular sclerosis without functional valvular abnormality. Discharged in sinus mechanism with a treadmill heart scan September 2015 showing poor exercise tolerance, completing only 2 minutes 45 seconds of Tay with heart rate reaching 127 BPM and significant blood pressure elevation of 210/90. Stopped with dyspnea and leg fatigue. No chest pain or EKG change. Normal pulmonary uptake. Normal left ventricle (LV) size with suspected hypokinesis, LVEF 52%, and suspicious partially reversible inferolateral/apical perfusion defect. Cardiac catheterization September 2015, [facility], showed normal LV wall motion, LVEF 55% with a 60% ostial left anterior descending (LAD) and 60% mid right coronary artery (RCA) stenosis. Continued medical therapy was advised. Event monitor September 2015 showed sinus tachycardia with right bundle branch block. No significant atrial or ventricular tachyarrhythmias (one 6-beat run at 170 BPM that was asymptomatic). On 07/07/2016, dual-chamber pacemaker implanted at [facility] for tachy-ryan syndrome ([employer], model #2240). Chest x-ray July 2016, PA and left lateral study, showed heart size within normal limits with dual-chamber pacemaker in situ. Venaport right internal jugular vein. Hyperinflated lung thomas with emphysematous changes and right upper lobe linear fibrosis. No change from prior studies. CORONARY RISK FACTORS: 1. Male gender. 2. Age. 3. Obesity. 4. Hypercholesterolemia. 5. Former heavy smoker (up to two packs per day for 40 years, stopping 2010). 6. Hypertension. No history of diabetes or family history of premature coronary heart disease. OTHER PAST MEDICAL HISTORY: 1. Smoking-induced chronic bronchitis, on home oxygen for chronic eucapnic respiratory failure. 2. Lung cancer 2010, treated with chemotherapy and radiation therapy, followed by oncology. 3. Pulmonary fibrosis. 4. Obstructive sleep apnea, on continuous positive airway pressure (CPAP). 5. Gastroesophageal reflux disease. 6. Microscopic hematuria, on oral anticoagulant therapy. 7. Remote kidney stones. 8. Post prostatectomy. 9. In 1971, kidney donation. SYSTEMS REVIEW: Denies any recent fever, chills, or night sweats. Wears corrective lenses. No hearing problems. Has a chronic productive cough but no hemoptysis. On proton pump inhibitor therapy, has been free of heartburn, dysphagia, or gastrointestinal (GI) bleeding. Prior hematuria but no dysuria or frequency. Some arthralgia but no arthritis. No muscular aches and pains. Bleeding tendency, as mentioned. Seasonal allergies. All other systems review is negative. MEDICATIONS: At home, he usually takes: - amiodarone 200 mg daily - bisoprolol 5 mg twice a day - Eliquis 5 mg twice a day - digoxin 0.125 mg daily - supplemental oxygen by nasal prongs - albuterol inhaler two puffs every 4 hours as needed dyspnea - Xanax 0.5 mg by mouth twice a day as needed anxiety - atorvastatin 40 mg by mouth nightly - Symbicort 160/4.5 inhalation two puffs twice a day - vitamin D3 at 1000 units by mouth daily - Mucomyst DM 600/30 mg one tablet by mouth twice a day as needed - Xalatan eye drops 0.005% one drop each eye nightly - loratadine 10 mg daily as needed - montelukast 10 mg by mouth daily - multivitamin one tablet daily - omeprazole 20 mg by mouth daily - Refresh Classic eye drops one drop each eye daily as needed dry eyes - theophylline 400 mg by mouth daily - Spiriva one inhalation daily ALLERGIES: None known. PHYSICAL EXAMINATION: CONSTITUTIONAL: Pleasant, overweight, barrel-chested, elderly male, lying comfortably with the head of the bed elevated 20 degrees. No pallor or cyanosis. VITAL SIGNS: Heart rate 122 BPM and regular, blood pressure 132/82 supine, respiratory rate 18, oxygen saturation 96% on supplemental oxygen by nasal prongs at 2 liters. He was afebrile. Weight 208 pounds, height 72 inches, body mass index (BMI) 28.3. EYES: No pallor, icterus, or petechiae. No xanthelasma. EAR, NOSE, AND THROAT (ENT)/MOUTH: Teeth showed dental decay. Normal palate. No central cyanosis. Normal oral moisture. NECK: Trachea midline. Thyroid not enlarged. Jugular veins were approximately 3 cm above the sternal angle. RESPIRATORY: Increased anteroposterior chest diameter with very little, if any, chest expansion and paradoxical indrawing of his costal margin. Venaport originating in the right subclavian region, extending to the right internal jugular vein. Well-healed pacemaker incision left subclavian region. Reduced air entry over both lung thomas with prolonged expiration. No audible wheeze. Few variable inspiratory rales right base. CARDIOVASCULAR: Apical impulse was not palpable. Heart sounds were very distant. Unable to detect S2 splitting. No audible gallops or murmurs. Normal carotid upstroke and volume with no bruits. Abdominal aorta was not palpable because of weight problem. Normal femoral pulses with symmetrically reduced pedal pulses. EXTREMITIES: Has 1 mm pitting edema two-thirds up both lower legs, which is chronic. No sacral pitting edema. Few dilated superficial venules but no obvious varicose veins. No clubbing, peripheral cyanosis, or splinter hemorrhages. ABDOMEN: Soft, nontender, overweight with few dilated superficial venules. No palpable mass or hepatosplenomegaly. RECTAL: Examination not indicated. MUSCULOSKELETAL: Gait was not assessed at this time. No obvious joint deformity. Normal appearing muscular strength and tone. Normal spine curvature. He does have Dupuytren's contracture. SKIN: Rhinophyma with some malar erythema. NEUROLOGIC/PSYCHIATRIC: Bright, alert, and orientated. Gave a lucid history. Eye, facial, and extremity movements were symmetrical and normal with no involuntary movements. INVESTIGATIONS: Chest x-ray: Portable upright study taken in the emergency room was reviewed independently and shows normal heart size for this technique but obvious hyperinflated lung thomas with flattened diaphragms. Normal appearing thoracic aorta with mild calcification in the aortic arch. Dual-chamber pacemaker with pulse generator left subclavian region with pacing leads terminating in the lateral aspect of the right atrium and the right ventricle (RV) apex. Position is unchanged. Also has a Venaport that tunnels from the right subclavian region up into his neck and comes down the right internal jugular vein, terminating in the superior vena cava. Pulmonary vasculature showed somewhat prominent proximal vessels but no pulmonary venous congestion. Increased interstitial markings both lower lobes with thickening of the pleura. Appearance not significantly changed from 2016. EKGs: Tracing 03/18/2020 at 8:47 p.m. shows what is believed to be an ectopic atrial tachycardia with possibly 2:1 AV conduction and ventricular rate 129 beats per minute. QRS complexes similar to his sinus mechanism, showing a rightward axis and right bundle branch block morphology. ST-T wave abnormality slightly more prominent because of the more rapid rate. Appearance is actually quite similar to that taken in [place] 12/09/2019. Followup EKG following pacemaker interrogation/reprogramming shows consistent atrially paced rhythm at 70 BPM with first-degree AV block and spontaneous AV conduction, rightward axis, and right bundle branch block. Repolarization abnormalities less prominent with the slower rate. Blood work: At the time of his admission, his hemoglobin was 14.8 with normal white blood cell count and platelet count. Chemistry showed slight degree of metabolic alkalosis but was otherwise normal with potassium 4.2, BUN was 19, creatinine 1.05, random glucose 117. Normal serum calcium. Liver function studies were normal. CPK and troponin I were normal. Ultrasensitive TSH was normal at 1.79. Albumin 4.1. Digoxin level was therapeutic at 0.9, and theophylline level was therapeutic at 10.5. Pacemaker interrogation: [employer], model #2240 with no measurable atrial activity with low rate set at 30 beats per minute but retrograde atrial activation. Intracardiac ventricular electrogram was excellent with greater than 12.0 mV. Atrial and ventricular pacing thresholds were excellent with expected battery longevity of at least 10 years. Pacemaker program changes were made to change the maximum sensor and tracking rate from 120 to 90 with extension of AV conduction programmed delay. Activation of atrial sensitivity to auto setting and detection rate for tachycardia dropped from 180 to 140 BPM IMPRESSION/PLAN: 1. Recurrent ectopic atrial tachycardia: Curiously, the rate of his tachycardia is similar to his upper programmed rate for tracking; however, the QRS complexes show a right bundle branch block similar to his spontaneous complexes against pacemaker-mediated tachycardia. At this point, we have elected to continue his chronic therapies, which include amiodarone 200 mg by mouth daily and bisoprolol 5 mg twice a day. He is currently on Eliquis, but we have never documented atrial fibrillation. We will plan on discussing discontinuing this at his followup appointment 04/05/2020. Should he have recurrent rhythm disturbance and his blood pressure allow, we would be tempted to add diltiazem to his bisoprolol and amiodarone. 2. Abnormal EKG/right bundle branch block: Longstanding conduction disturbance believed to be related to his cor pulmonale. Upon interrogation of his device, he actually has mostly spontaneous activity, pacing in the atrium only 39% of the time and pacing in the ventricles only 8.7% of the time. 3. Coronary artery disease ([place] vessel): Previous cardiac catheterization showing nonobstructive LAD and RCA disease. Has vague chest discomfort with his tachycardia, but serial troponin I levels were negative. Will remain on protective combination bisoprolol, atorvastatin, and Eliquis for the time being. 4. Hypertensive heart disease (benign without heart failure): Current blood pressure with resumption of atrially paced rhythm with spontaneous QRS complexes at 70 BPM reflects good control with pressure of 114/78 supine with no significant change sitting. No change would be deemed necessary to his bisoprolol therapy alone. Fortunately, despite his advanced pulmonary disease, he appears to tolerate this agent. 5. Smoking-induced chronic obstructive pulmonary disease (COPD)/emphysema/chronic respiratory failure: For the most part, seems to be doing fairly well on his combination bronchodilator therapy, including theophylline. No evidence of acute respiratory tract infection at this time. No change was made to his combination therapy and home oxygen. Have encouraged his ongoing use of CPAP. At this point, he could be discharged home, and we will plan on following him in the office on 04/05/2020. We would encourage him to contact us should he have any further problems. LYDIA
== END 2020-03-19 11:51 | disposition home or self-care (01) | DRG 315 ==
LOC: M ED 20:30 → M ED INP 03-19 01:45 → ENRESERV 03-19 02:02 → M PCU 03-19 02:44
PROVIDERS: ADMIT Internal Medicine; ATTEND Internal Medicine
DX: T82.897A Other specified complication of cardiac prosthetic devices, implants and grafts, initial encounter (principal); J96.10 Chronic respiratory failure, unspecified whether with hypoxia or hypercapnia; I48.91 Unspecified atrial fibrillation; J44.9 Chronic obstructive pulmonary disease, unspecified; Z95.0 Presence of cardiac pacemaker; F41.9 Anxiety disorder, unspecified; K21.9 Gastro-esophageal reflux disease without esophagitis; Z79.01 Long term (current) use of anticoagulants; Z79.899 Other long term (current) drug therapy; Z85.118 Personal history of other malignant neoplasm of bronchus and lung; Z87.891 Personal history of nicotine dependence; G47.33 Obstructive sleep apnea (adult) (pediatric); E66.9 Obesity, unspecified; J84.10 Pulmonary fibrosis, unspecified; Y83.8 Other surgical procedures as the cause of abnormal reaction of the patient, or of later complication, without mention of misadventure at the time of the procedure

== ENCOUNTER 2020-03-26 21:24 | Inpatient (IN) | payer MEDICARE, OTHER ==
[~2020-03-26] VITALS: Ht 182.9 cm; Wt 95.0 kg
[~2020-03-26 21:24] MED LIST changes: +DIGO0.123 PO; +MUCI30TA5 PO; +MULTCAP PO; +VENTAER INH; +VITAD1000T PO; +XALA0.007 OU
[2020-03-26 22:08] LABS: BASO % 0.6 % (0.0-1.0); EOS # 0.2 10^3/uL (0.0-0.5); EOS % 2.7 % (0.0-3.0); HEMOGLOBIN 14.8 g/dl (13.5-17.5); LYMPH # 1.4 10^3/uL (1.5-5.0); LYMPH % 19.9 % (24.0-44.0); MEAN CORPUSCULAR HEMOGLOBIN 30.5 pg (27.0-33.0); MEAN CORPUSCULAR HGB CONC 31.5 g/dl (32.0-36.5); MEAN CORPUSCULAR VOLUME 96.9 fl (80.0-96.0); MONO # 0.8 10^3/uL (0.0-0.8); MONO % 10.8 % (0.0-5.0); NEUTROPHILS # 4.7 10^3/uL (1.5-8.5); NEUTROPHILS % 65.2 % (36.0-66.0); PLATELET COUNT, AUTOMATED 166 10^3/uL (150-450); RED BLOOD COUNT 4.85 10^6/uL (4.30-6.10); WHITE BLOOD COUNT 7.1 10^3/uL (4.0-10.0)
[2020-03-26] MEDS ORDERED: AMIODARONE HCL 150 MG in IV 1 EA IV STA ×2 (22:09→23:13)
[2020-03-26] MEDS ORDERED: bisoproloL fumarate 5 MG TAB PO ONE (22:15)
[2020-03-27] MEDS ORDERED: AMIODARONE HCL 150 MG in IV 1 EA IV STA ×2 (01:30→16:43)
[2020-03-27] MEDS ORDERED: DIGO0.123 PO (02:59)
[2020-03-27] MEDS ORDERED: ALBUTEROL 90 MCG/ACT 8GM HFA INHALER INH PRN (03:30)
[2020-03-27] MEDS ORDERED: ALPRAZolam 0.5 MG TAB PO PRN (03:30)
[2020-03-27] MEDS ORDERED: LORATADINE 10 MG TAB PO PRN (03:30)
[2020-03-27] MEDS ORDERED: AMIODARONE HCL 360 MG in IV 1 EA IV SCH ×2 (03:30→09:30)
--- NOTE | 2020-03-27 03:37 | HPEPDOC ---
General Date of Admission Mar 27, 2020 at 03:19 Date of Service: Mar 27, 2020 Chief Complaint The patient is a 69-year-old male admitted with a reason for visit of Afib With Rvr. Source: Patient Exam Limitations: No limitations Timing/Duration: Other (today) Severity: Other (on applicable) Associated Symptoms: Other (, palpitations) History of Present Illness This is a 69 years old white male with past medical history of A. fib, COPD, hyperlipidemia, dry eyes, glaucoma, GERD, solitary kidney and a stage IV lung cancer, status post chemotherapy, radiation, was recently discharged last month after he was admitted with A. fib with the RVR. Patient again presented after one week with similar complaints of heart rate between 65 and 130 when he checked his pulse rate, but no shortness of breath, Chest pain, syncope, dizziness. In the emergency room, Dr. Byrnes, was called for cardiac consultation and he advised Dr. agarwal to administer amiodarone 150 mg 3, and bisoprolol 5 mg IV 1, patient's heart rate is anywhere between 110 and 120 now without any symptoms and is being admitted for further management Home Medications Scheduled Amiodarone HCl (Amiodarone HCl) 200 Mg Tab, 200 MG PO DAILY, (Reported) Apixaban (Eliquis) 5 Mg Tablet, 5 MG PO BID, (Reported) Atorvastatin Calcium (Atorvastatin Calcium) 40 Mg Tab, 40 MG PO QHS, (Reported) Bisoprolol Fumarate (Bisoprolol Fumarate) 5 Mg Tab, 5 MG PO BID, (Reported) Budesonide/Formoterol (Symbicort 160-4.5 Mcg Inhaler) 60 Puff/Inhaler Aers, 2 PUFF INH BID, (Reported) Cholecalciferol (Vitamin D3) (Vitamin D3) 1,000 Unit Tablet, 1,000 UNITS PO QHS, (Reported) Digoxin (Digoxin) 125 Mcg Tablet, 125 MCG PO DAILY, (Reported) Latanoprost (Xalatan) 0.005% 2.5ML Drops, 1 DROP OU QHS, (Reported) Montelukast Sodium (Montelukast Sodium) 10 Mg Tab, 10 MG PO DAILY, (Reported) Multivitamin (Multivitamins) 1 Each Capsule, 1 CAP PO QHS, (Reported) Omeprazole (Omeprazole) 20 Mg Cap, 20 MG PO DAILY, (Reported) Theophylline Anhydrous (Theophylline) 400 Mg Tab, 400 MG PO DAILY, (Reported) Tiotropium [place] (Spiriva) 18 Mcg Cap, 1 INHALATION INH DAILY, (Reported) Scheduled PRN Albuterol Sulfate (Ventolin Hfa) 18 Gm Hfa.aer.ad, 2 PUFF INH Q4-6HP PRN for wheezing, (Reported) Alprazolam (Xanax) 0.5 Mg Tab, 0.5 MG PO BID PRN for ANXIETY, (Reported) Loratadine (Loratadine) 10 Mg Tab, 10 MG PO DAILY PRN for allergies, (Reported) Polyvinyl Alcohol/Povidone/Pf (Refresh Classic Eye Drops) 1 Ea Renetta, 1 DROP OU PRN PRN for DRY EYES, (Reported) Allergies Coded Allergies: No Known Allergies (Unverified , 09/11/15) Past Medical History Medical History A. fib, permanent pacemaker placement, COPD, hyperlipidemia, dry eyes, glaucoma, GERD, solitary kidneys, stage IV lung cancer status post chemotherapy and radiation Surgical History Prostatectomy, right nephrectomy, kidney stone removal on her right lung biopsy Family History Father is due to CHF and CAD. Mother with colon cancer Social History * Smoker: former Smoker Alcohol: Denies Drugs: denies A-FIB/CHADSVASC A-FIB History Current/History of A-Fib/PAF?: Yes Current PO Anticoag Therapy: Yes Review of Systems Constitutional: Denies: Chills, Fever, Malaise, Night Sweats, Weakness, F atigue, Weight Loss, Lethargy, Other Eyes: Denies: Pain, Vision change, Conjunctivae inflammation, Eyelid inflammation, Redness, Other ENT: Denies: Head Aches, Ear Pain, Dysphagia, Sinus Congestion, Post Nasal Drip, Sore Throat, Epistaxis, Other Symptoms Skin: Denies: Rash, Lesions, Jaundice, Bruising, Itching, Dry, Breakdown, Nail Changes, Other Pulmonary: Denies: Dyspnea, Cough, Pleuritic Chest Pain, Other Symptoms Cardiovascular: Reports: Palpitations Gastrointestinal: Denies: Nausea, Vomiting, Abdominal Pain, Diarrhea, Constipation, Melena, Hematochezia, Other Symptoms Genitourinary: Denies: Dysuria, Frequency, Incontinence, Hematuria, Retention, Other Symptoms Hematologic: Denies: Bruising, Bleeding Excessively, Petecchia, Purpura, Enlarged Lymph Nodes, Other Hematologic Endocrine: Denies: Polydipsia, Polyphagia, Polyuria, Heat Intolerance, Cold Intolerance, Other Endocrine Sx Musculoskeletal: Denies: Neck Pain, Back Pain, Shoulder Pain, Arm Pain, Hand Pain, Leg Pain, Foot Pain, Joint Pain, Muscle Pain, Spasms, Other Symptoms Neurological: Denies: Weakness, Numbness, Incoordination, Change in speech, Confusion, Seizures, Other Symptoms Physical Examination General Exam: Positive: Alert, Cooperative Eye Exam: Positive: PERRLA, Conjunctiva & lids normal ENT Exam: Positive: Atraumatic, Mucous membr. moist/pink Neck Exam: Positive: Supple, JVD Chest Exam: Positive: Clear to auscultation, Normal air movement Heart Exam: Positive: Tachycardic, Irregular Rhythm Telemetry: Positive: Atrial fibrillation Abdomen Exam: Positive: Normal bowel sounds, Soft Extremity Exam: Positive: Normal pulses Skin Exam: Positive: Nl turgor and temperature Neuro Exam: Positive: Strength at 5/5 X4 ext, Sensation Intact, Cranial Nerves 3-12 NL Psych Exam: Positive: Mood NL, Oriented x 3 Vital Signs Vital Signs Date Time Temp Pulse Resp B/P (MAP) Pulse Ox O2 Delivery O2 Flow Rate FiO2 03/27/20 01:46 20 123/79 (94) 97 Room Air 03/27/20 01:45 122 03/26/20 21:24 98.4 4.0 Laboratory Data Labs 24H Laboratory Tests 2 03/26/20 21:55: Immature Granulocyte % (Auto) 0.8, Neutrophils (%) (Auto) 65.2, Lymphocytes (%) (Auto) 19.9L, Monocytes (%) (Auto) 10.8H, Eosinophils (%) (Auto) 2.7, Basophils (%) (Auto) 0.6, Neutrophils # (Auto) 4.7, Lymphocytes # (Auto) 1.4L, Monocytes # (Auto) 0.8, Eosinophils # (Auto) 0.2, Basophils # (Auto) 0.0, Nucleated Red Blood Cells % (auto) 0.0 03/26/20 22:00: POC Troponin I (Misc) 0.00 03/26/20 22:02: POC Glucose (Misc Panel) 133H, POC Sodium (Misc Panel) 141, POC Potassium (Misc Panel) 4.5, POC Chloride (Misc Panel) 99, POC Total CO2 (Misc Panel) 33.0H, POC Blood Urea Nitrogen (Misc Panel 23, POC Ionized Calcium (Misc Panel) 5.1, POC Creatinine (Misc Panel) 1.1, POC Hematocrit (Misc Panel) 46.0 CBC/BMP Laboratory Tests 03/26/20 21:55 Problems (1) Atrial fibrillation with rapid ventricular response Status: Acute Problem Text: Admit patient to PCU with telemetry monitoring with the diagnosis of atrial fibrillation with rapid ventricular response Patient did receive 3 doses of amiodarone IV 150 mg, and bisoprolol 5 mg IV 1. His heart rate is between 110 and 120, now, but patient is completely asymptomatic Troponins are negative. Chest x-rays, NAD CBC, CMP are normal. Digoxin level and magnesium levels are pending Patient was recently discharged after his pacemaker was adjusted by Dr. Byrnes in the hospital Admit patient to PCU with telemetry Start amiodarone drip initially 1 mg/m IV for 6 hours, then 0.5 mg/m IV for 18 hours till patient converts to normal sinus rhythm, rate gets under control Continue patient's home beta earl and digoxin as per medical reconciliation s heet Continue all other home meds Dr. Byrnes was called by ED physician for consultation. We will await cardiology input Serial troponin will be ordered Diet is 2 g sodium Activity as tolerated DVT prophylaxis, patient is already on anticoagulation for atrial fibrillation (2) COPD (chronic obstructive pulmonary disease) Status: Chronic Problem Text: Under well control Continue home meds (3) Hyperlipidemia Status: Chronic Problem Text: Continue home meds (4) Lung cancer Permanent Comment: His last chemotherapy was in 2010 Last Edited By: William Morales on Jun 13, 2016 19:31 Status: Chronic Problem Text: History of lung cancer status post chemoradiation therapy Plan / VTE VTE Prophylaxis Ordered?: Yes BRIAN POZO MD Mar 27, 2020 03:37
[2020-03-27 04:28] LABS: DIGOXIN LEVEL 0.4 NG/ML (0.5-2.0); MAGNESIUM LEVEL 1.9 MG/DL (1.8-2.4)
--- NOTE | 2020-03-27 04:33 | ECGEPIP ---
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
--- NOTE | 2020-03-27 04:34 | ECGEPIP ---
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
--- NOTE | 2020-03-27 04:34 | ECGEPIP ---
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
[2020-03-27 04:43] VITALS: BP 145/71
[2020-03-27] MEDS: VITAMIN D 1,000 INTERNATIONAL UNITS TABLET PO SCH ×2 (05:01→20:36)
[2020-03-27] MEDS: ATORVASTATIN 20 MG TAB PO SCH ×2 (05:02→20:36)
[2020-03-27] MEDS: ACETAMINOPHEN TAB 650MG DOSE (2X325MG) PO PRN ×2 (05:17→23:51)
[2020-03-27] MEDS: LATANOPROST 0.005% OPHTH SOLN 2.5 ML OU SCH ×2 (05:31→20:36)
[2020-03-27 08:00] VITALS: BP 112/74
--- NOTE | 2020-03-27 08:18 | REP ---
REASON FOR EXAM: Chest pain. COMPARISON: Multiple the latest 03/18/2020. The technique utilized in obtaining the radiograph has magnified the cardiac silhouette and accentuated the interstitial markings. The cardiac silhouette is again magnified by technique. Chronic changes are seen throughout the lung thomas with lung field hyperexpansion and biapical bullous emphysematous changes. Basilar fibrotic changes are again noted status quo. There is no change in the appearance of the pulmonary luz. The dual chamber bipolar pacemaker device is unchanged. No acute patchy parenchymal opacities or pleural effusions seem to have developed. There is no change in the osseous structures. There is a central venous catheter which is unchanged the tip of which is in the superior vena cava entering from the right internal jugular vein. IMPRESSION: Stable chronic changes. Electronically Signed by Duane Poe DO 03/27/2020 09:45 A
[2020-03-27] MEDS: TIOTROPIUM INHALER/CAPSULE (SPIRIVA) INH SCH (08:27)
[2020-03-27] MEDS: SYMBICORT 160/4.5MCG INHALER 6GM INH SCH ×2 (08:27→19:36)
[2020-03-27] MEDS ORDERED: AMIODARONE HCL 150 MG in IV 1 EA IV ONE (08:30)
[2020-03-27] MEDS: bisoproloL fumarate 5 MG TAB PO SCH ×2 (08:41→20:37)
[2020-03-27] MEDS: OMEPRAZOLE 20 MG CAP PO SCH (08:41)
[2020-03-27] MEDS: MONTELUKAST 10 MG TAB PO SCH (08:42)
[2020-03-27] MEDS: AMIODARONE 200 MG TAB (PACERONE) PO SCH ×4 (08:42→20:36)
[2020-03-27] MEDS ORDERED: DIGOXIN 0.125 MG TAB PO SCH (09:00)
[2020-03-27] MEDS ORDERED: APIXABAN 5 MG TAB (ELIQUIS) PO SCH (09:00)
--- NOTE | 2020-03-27 09:53 | CR.PDOC ---
General Date of Consultation: Mar 27, 2020 Referring Provider: BRIAN POZO MD Attending Physician: Fito Byrnes Consultation REASON FOR CONSULTATION/CHIEF COMPLAINT: Atrial Tachycardia HISTORY OF PRESENT ILLNESS: Patient is a 69 year old male, father of two grown children, retired/disabled resident of [place], [place], who [place] in [place], well known to [facility] of [facility]. Patient carries a history of advanced COPD on home oxygen, pulmonary fibrosis, lung cancer diagnosed in 2010 s/p chemo and radiation, NACHO, CAD, HTN and multifocal atrial tachycardia. 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 Patient was recently in the hospital, discharged on 03/19/20 with recurrent ectopic atrial tachycardia. Pt was continued on amiodarone 200 mg, bisoprolol 5 mg BID. He was also continued on his Eliquis despite not having a previously documented episode of atrial fibrillation. Pt was scheduled for a follow-up a ppointment with cardiology on 04/05/20. Patient presented to the ED in the towel folder of 03/27/20 with an elevated heart rate between 65 and 130. He denies ever experiencing any discomfort, SOB, syncope or near-syncope. Cardiology was consulted in the ED and recommended amiodarone 150 mg 3, and bisoprolol 5 mg IV 1. Despite these interventions, patient's HR remained 110-120 bpm. Hospitalist team was contacted for admission and continued telemetry. 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 Mother with colon cancer. SOCIAL HISTORY: Marital status and/or living arrangements: Children: 2 frown children Employment: Retired, disabled Tobacco use: Former, 2PPD for 40 years, cessation in 2010 ETOH: Denies Illicit drug use: Denies Other relevant social factors: Summer resident of [facility] in [place] REVIEW OF SYSTEMS: CONSTITUTIONAL: Patient denies any recent history of fevers, chills, night sweats or changes in weight HEENT: Denies headache, changes in vision or hearing. No difficuty swallowing CARDIOVASCULAR: Reports intermittent palpitations but otherwise denies chest pain/pressure/discomfort. RESPIRATORY: Denies any SOB. Reports baseline cough GENITOURINARY: No difficulties urinating MUSCULOSKELETAL: Denies muscle aches or pains GASTROINTESTINAL: Denies n/v/d/c. No belly ache or pain SKIN: No new rash or skin lesions NEUROLOGICAL: Denies dizziness or vertigo, no LOC, no numbness/tingling PSYCHIATRIC: Denies depressive/anxious symptoms PHYSICAL EXAMINATION: VITAL SIGNS: Please see below. GENERAL APPEARANCE: pleasant, overweight, barrel-chested, elderly male, lying comfortably with the head of the bed elevated 20 degrees. No pallor or cyanosis. HEENT: No pallor or icterus. No xanthelasma. Teeth showed dental decay. Normal palate. No central cyanosis. Normal oral moisture. Neck: Trachea midline. Thyroid not enlarged. RESPIRATORY: Increased anteroposterior chest diameter with very little, if any, chest expansion and paradoxical in drawing of his costal margin. Pacemaker inc ision left subclavian region. Reduced air entry over both lung thomas with prolonged expiration. No audible wheeze. CARDIOVASCULAR: Apical impulse was not palpable. Heart sounds were very distant. No audible gallops or murmurs. No carotid bruits. Pulses 2+ in both radial and PT laterally. ABDOMEN: Soft, nontender, overweight with few dilated superficial venules. No palpable mass or hepatosplenomegaly EXTREMITIES: 1+ pitting edema bilaterally. No clubbing or peripheral cyanosis. NEUROLOGICAL:Alert and oriented x3 able to actively participate in his care. Good historian. PSYCHIATRIC: Appropriate mood and affect SKIN: Rhinophyma, no other lesions or rashes LABORATORY DATA: Please see below. ASSESSMENT/PLAN: #Atrial tachycardia -In the ED, patient received amiodarone 150 mg x3, bisoprolol 5 mg IV x1. -Pts rate failed to fall below 120 and was placed on an amiodarone drip at 1 mg/hr for 6 hours and 0.5mg/hr for 18 hrs or until conversion to NSR. His home bisoprolol 5 mg PO BID and Digoxin 0.125mg QD were also continued. -Stop amiodarone drip, given the extended half-life, PO medication has been proven more effective. -Pt started on amiodarone 200 mg PO QID. -D/C home digoxin. Given patient's age and comorbidities combination with amiodarone is not recommended. -Earlier today, patient received 2 IV bolus of 150 mg of amiodarone. Despite this, he has remained in the 120's. Two additional boluses to be given this evening. -Suspect single ectopic foci and unrelated to patient's dual chamber pacemaker. -Ultimate treatment will be for patient to receive an EP ablation. Discussed case with Dr. Ventura at [facility] who was agreeable to transfer tomorrow and to perform the procedure on , 03/29/20. -Given that the patient has not been diagnosed with atrial fibrillation, and that he is likely to have a procedure in 48 hours, D/C his Eliquis. -Continue telemetry monitoring. #CAD -Previous heart catheterization demonstrated nonobstructive LAD and RCA disease -Troponin performed on admission, negative -Pt currently denying any chest pain, continue to monitor serial troponin for possibility of type II WI. -Patient to remain on protective combination of bisoprolol, atorvastatin. #Abnormal EKG with RBBB -Patient carries a history of long-standing conduction disturbance 2/2 to core pulmonale. -No indication of atrial fibrillation #Hypertensive heart disease -Patient's blood pressure reflects good control, no significant change in the sitting position. -Continue with current Bisoprolol. -Continue to monitor #Smoking induced COPD -Bronchodilator combination therapy and theophylline -No respiratory distress or signs of infection -Continue supplemental oxygen -CPAP at night CODE STATUS: FULL CODE DISPOSITION: Anticipate transfer to [facility] tomorrow Prognosis remains guarded. Vital Signs/I&O Vital Signs Date Time Temp Pulse Resp B/P (MAP) Pulse Ox O2 Delivery O2 Flow Rate FiO2 03/27/20 08:41 115 112/74 03/27/20 08:00 96.9 18 98 Nasal Cannula 2.0 I&O- Last 24 Hours up to 6 AM 03/27/20 05:59 Intake Total 300 ml Balance 300 ml Laboratory Data Labs 24H Laboratory Tests 2 03/26/20 21:55: Immature Granulocyte % (Auto) 0.8, Neutrophils (%) (Auto) 65.2, Lymphocytes (%) (Auto) 19.9L, Monocytes (%) (Auto) 10.8H, Eosinophils (%) (Auto) 2.7, Basophils (%) (Auto) 0.6, Neutrophils # (Auto) 4.7, Lymphocytes # (Auto) 1.4L, Monocytes # (Auto) 0.8, Eosinophils # (Auto) 0.2, Basophils # (Auto) 0.0, Nucleated Red Blood Cells % (auto) 0.0 03/26/20 22:00: POC Troponin I (Misc) 0.00 03/26/20 22:02: POC Glucose (Misc Panel) 133H, POC Sodium (Misc Panel) 141, POC Potassium (Misc Panel) 4.5, POC Chloride (Misc Panel) 99, POC Total CO2 (Misc Panel) 33.0H, POC Blood Urea Nitrogen (Misc Panel 23, POC Ionized Calcium (Misc Panel) 5.1, POC Creatinine (Misc Panel) 1.1, POC Hematocrit (Misc Panel) 46.0 03/27/20 03:15: Magnesium Level 1.9, Digoxin Level 0.4L 03/27/20 05:49: Troponin I < 0.02 CBC/BMP Laboratory Tests 03/26/20 21:55 Allergies Coded Allergies: No Known Allergies (Unverified , 09/11/15) Home Medications Scheduled Amiodarone HCl (Amiodarone HCl) 200 Mg Tab, 200 MG PO DAILY, (Reported) Apixaban (Eliquis) 5 Mg Tablet, 5 MG PO BID, (Reported) Atorvastatin Calcium (Atorvastatin Calcium) 40 Mg Tab, 40 MG PO QHS, (Reported) Bisoprolol Fumarate (Bisoprolol Fumarate) 5 Mg Tab, 5 MG PO BID, (Reported) Budesonide/Formoterol (Symbicort 160-4.5 Mcg Inhaler) 60 Puff/Inhaler Aers, 2 PUFF INH BID, (Reported) Cholecalciferol (Vitamin D3) (Vitamin D3) 1,000 Unit Tablet, 1,000 UNITS PO QHS, (Reported) Digoxin (Digoxin) 125 Mcg Tablet, 125 MCG PO DAILY, (Reported) Latanoprost (Xalatan) 0.005% 2.5ML Drops, 1 DROP OU QHS, (Reported) Montelukast Sodium (Montelukast Sodium) 10 Mg Tab, 10 MG PO DAILY, (Reported) Multivitamin (Multivitamins) 1 Each Capsule, 1 CAP PO QHS, (Reported) Omeprazole (Omeprazole) 20 Mg Cap, 20 MG PO DAILY, (Reported) Theophylline Anhydrous (Theophylline) 400 Mg Tab, 400 MG PO DAILY, (Reported) Tiotropium [place] (Spiriva) 18 Mcg Cap, 1 INHALATION INH DAILY, (Reported) Scheduled PRN Albuterol Sulfate (Ventolin Hfa) 18 Gm Hfa.aer.ad, 2 PUFF INH Q4-6HP PRN for wheezing for 30 Days, #1 (Reported) Alprazolam (Xanax) 0.5 Mg Tab, 0.5 MG PO BID PRN for ANXIETY, (Reported) Loratadine (Loratadine) 10 Mg Tab, 10 MG PO DAILY PRN for allergies, (Reported) Polyvinyl Alcohol/Povidone/Pf (Refresh Classic Eye Drops) 1 Ea Renetta, 1 DROP OU PRN PRN for DRY EYES, (Reported) JUNI SANDERS DO Mar 27, 2020 09:53
[2020-03-27 11:14] LABS: BASO # 0.1 10^3/uL (0.0-0.2); BASO % 0.7 % (0.0-1.0); EOS # 0.3 10^3/uL (0.0-0.5); EOS % 3.8 % (0.0-3.0); HEMATOCRIT 45.1 % (42.0-52.0); HEMOGLOBIN 14.2 g/dl (13.5-17.5); LYMPH # 1.4 10^3/uL (1.5-5.0); LYMPH % 20.1 % (24.0-44.0); MEAN CORPUSCULAR HEMOGLOBIN 30.5 pg (27.0-33.0); MEAN CORPUSCULAR HGB CONC 31.5 g/dl (32.0-36.5); MEAN CORPUSCULAR VOLUME 96.8 fl (80.0-96.0); MONO # 0.8 10^3/uL (0.0-0.8); MONO % 11.4 % (0.0-5.0); NEUTROPHILS # 4.3 10^3/uL (1.5-8.5); NEUTROPHILS % 63.4 % (36.0-66.0); PLATELET COUNT, AUTOMATED 153 10^3/uL (150-450); RED BLOOD COUNT 4.66 10^6/uL (4.30-6.10); WHITE BLOOD COUNT 6.8 10^3/uL (4.0-10.0)
[2020-03-27 11:32] LABS: ALBUMIN 3.5 GM/DL (3.2-5.2); ALT/SGPT 35 U/L (12-78); BILIRUBIN,TOTAL 0.3 MG/DL (0.2-1.0); BLOOD UREA NITROGEN 19 MG/DL (7-18); CALCIUM LEVEL 8.9 MG/DL (8.8-10.2); CARBON DIOXIDE LEVEL 33 MEQ/L (21-32); CHLORIDE LEVEL 104 MEQ/L (98-107); CREATININE FOR GFR 1.01 MG/DL (0.70-1.30); GLOMERULAR FILTRATION RATE > 60.0 (>42); GLUCOSE, FASTING 118 MG/DL (70-100); MAGNESIUM LEVEL 1.8 MG/DL (1.8-2.4); POTASSIUM SERUM 4.3 MEQ/L (3.5-5.1); SODIUM LEVEL 142 MEQ/L (136-145); TOTAL PROTEIN 6.6 GM/DL (6.4-8.2)
[2020-03-27 11:39] LABS: CK-MB VALUE MASS 1.2 NG/ML (<3.6); CPK CREATINE PHOSPHOKINASE 66 U/L (39-308); MB/CK RELATIVE INDEX 1.82 (< OR =4); TROPONIN I < 0.02 NG/ML (< 0.10)
[2020-03-27 12:00] VITALS: BP 104/61
[2020-03-27] MEDS ORDERED: MAG SULF 1GM/100ML (MAG RUN) 1 GM in IV 1 EA IV ONE (15:00)
[2020-03-27 16:00] VITALS: BP 140/70
[2020-03-27] MEDS ORDERED: AMIODARONE HCL 150 MG in IV 1 EA IV PRN (17:15)
[2020-03-27 20:00] VITALS: BP 104/69
[2020-03-28] VITALS: BP 117/76
[2020-03-28 04:00] VITALS: BP 126/71
[2020-03-28 07:39] LABS: HEMATOCRIT 42.7 % (42.0-52.0); HEMOGLOBIN 13.4 g/dl (13.5-17.5); MEAN CORPUSCULAR HEMOGLOBIN 30.7 pg (27.0-33.0); MEAN CORPUSCULAR HGB CONC 31.4 g/dl (32.0-36.5); MEAN CORPUSCULAR VOLUME 97.7 fl (80.0-96.0); PLATELET COUNT, AUTOMATED 154 10^3/uL (150-450); RED BLOOD COUNT 4.37 10^6/uL (4.30-6.10); WHITE BLOOD COUNT 6.2 10^3/uL (4.0-10.0)
[2020-03-28] MEDS: SYMBICORT 160/4.5MCG INHALER 6GM INH SCH (07:50)
[2020-03-28] MEDS: TIOTROPIUM INHALER/CAPSULE (SPIRIVA) INH SCH (07:50)
--- NOTE | 2020-03-28 07:51 | ECGEPIP ---
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 Rule out prior septal infarction Primary lateral repolarization abnormalities. Rhythm change from ectopic atrial tachycardia with improvement and repolarization abnormality from earlier the same day Electronically Signed on 03-28-2020 7:51:08 EDT by Fito Byrnes
[2020-03-28 08:00] VITALS: BP 114/62
[2020-03-28 08:02] LABS: BLOOD UREA NITROGEN 22 MG/DL (7-18); CARBON DIOXIDE LEVEL 34 MEQ/L (21-32); CHLORIDE LEVEL 105 MEQ/L (98-107); CREATININE FOR GFR 0.99 MG/DL (0.70-1.30); GLOMERULAR FILTRATION RATE > 60.0 (>42); GLUCOSE, FASTING 92 MG/DL (70-100); POTASSIUM SERUM 4.5 MEQ/L (3.5-5.1); SODIUM LEVEL 143 MEQ/L (136-145)
[2020-03-28] MEDS: OMEPRAZOLE 20 MG CAP PO SCH (08:42)
[2020-03-28] MEDS: MONTELUKAST 10 MG TAB PO SCH (08:42)
[2020-03-28 08:43] VITALS: BP 114/62
[2020-03-28] MEDS: AMIODARONE 200 MG TAB (PACERONE) PO SCH (08:43)
[2020-03-28] MEDS: bisoproloL fumarate 5 MG TAB PO SCH (08:43)
--- NOTE | 2020-03-28 09:31 | IPNPDOC ---
Text Note Date of Service The patient was seen on 03/28/20. NOTE SUBJECTIVE: Patient is a 69-year-old male, who carries a history of advanced COPD on home oxygen, pulmonary fibrosis, lung cancer diagnosed in 2010 F/P jessica motherapy and radiation, NACHO on CPAP, coronary artery disease, hypertensive heart disease and multifocal atrial tachycardia, and history of tachybradycardia syndrome for which patient received a pacemaker in 2016. Patient was interviewed and examined in his hospital bed this morning. Patient was found to be seated upright in bed watching television in no acute distress. He can use to deny any acute complaints including chest pain/pressure, shortness of breath, wheeze or cough, abdominal pain, difficulty stooling or urinating. He states that he is aware that his heart rate has decreased to his normally paced rhythm. This has been stable since his last amiodarone bolus at approximately 1900 last evening. Rational for transfer was again discussed and patient was in agreement. All questions regarding patient's current medical condition and ablative procedure answered. OBJECTIVE: VITALS: Temperature of 96.7, pulse of 70, respiratory rate 20, blood pressure 114/62, SPO2 100 with 2 L via nasal cannula. GENERAL APPEARANCE: pleasant, overweight, barrel-chested, elderly male, lying comfortably with the head of the bed elevated 20 degrees. No pallor or cyanosis. HEENT: No pallor or icterus. No xanthelasma. Teeth showed dental decay. Normal palate. No central cyanosis. Normal oral moisture. Neck: Trachea midline. Thyroid not enlarged. RESPIRATORY: Increased anteroposterior chest diameter, minimal chest expansion and paradoxical breathing. Pacemaker incision noted, well-healed. Reduced air entry over both lung thomas with prolonged expiration. No audible wheeze. No dullness to percussion CARDIOVASCULAR: Apical impulse was not palpable. Heart sounds were very distant suspect secondary to chronic lung disease. No audible gallops or murmurs. No carotid bruits. Pulses 2+ radially, 1+ in bilateral posterior tibial pulses. ABDOMEN: Soft, nontender, obese,no palpable mass or hepatosplenomegaly EXTREMITIES: 1+ pitting edema bilaterally. No clubbing or peripheral cyanosis. No calf tenderness bilaterally NEUROLOGICAL:Alert and oriented x3 able to actively participate in his care. Good historian. PSYCHIATRIC: Appropriate mood and affect SKIN: Rhinophyma, no other lesions or rashes ASSESSMENT/PLAN: #Atrial tachycardia -Patient is status post for IV infusions of amiodarone the last around 1900 last evening. Since then, patient has remained in his regular paced rate. -Ultimate treatment will be for patient to receive an EP ablation. Discussed case with Dr. Ventura at [facility] who was agreeable to transf er today and to perform the procedure on , 03/29/20. -This was discussed with the patient who is in agreement with the plan. -80s Eliquis was discontinued yesterday -Continue telemetry monitoring until transport. #CAD -Previous heart catheterization demonstrated nonobstructive LAD and RCA disease -Troponin performed on admission, negative -Pt currently denying any chest pain, repeat troponins yesterday remains negative -Patient to remain on protective combination of bisoprolol, atorvastatin. #Abnormal EKG with RBBB -Patient carries a history of long-standing conduction disturbance 2/2 to core pulmonale. -Right axis deviation noted, poor R-wave progression with lateral repolarization abnormalities. -No indication of atrial fibrillation, anticoagulation discontinued -Consistent with EKGs performed yesterday #Hypertensive heart disease -Patient's blood pressure reflects good control, no significant change in the sitting position. -Continue with current Bisoprolol. -Continue to monitor #Smoking induced COPD -Bronchodilator combination therapy and theophylline -No respiratory distress or signs of infection -Continue supplemental oxygen -CPAP at night VS,Fishbone, I+O VS, Fishbone, I+O Laboratory Tests 03/27/20 11:01 03/28/20 07:25 Vital Signs Date Time Temp Pulse Resp B/P (MAP) Pulse Ox O2 Delivery O2 Flow Rate FiO2 03/28/20 08:43 70 114/62 03/28/20 08:00 96.7 20 100 Nasal Cannula 2.0 I&O- Last 24 Hours up to 6 AM 03/28/20 06:00 Intake Total 1106.55 ml Output Total 1650 ml Balance -543.45 ml GME ATTESTATION GME ATTESTATION My faculty preceptor for this patient encounter was physically present during the encounter and was fully available. All aspects of the patient interview, examination, medical decision making process, and medical care plan development were reviewed and approved by the faculty preceptor. The faculty preceptor is aware and concurs with the plan as stated in the body of this note and will attest to such by his/her cosignature. JUNI SANDERS DO Mar 28, 2020 09:31
[2020-03-28] MEDS ORDERED: AMIO200T PO (10:12)
[2020-03-28 11:01] VITALS: BP 135/72
--- NOTE | 2020-03-29 07:11 | DS.PDOC ---
Discharge Summary General Date of Admission Mar 27, 2020 at 03:19 Date of Discharge 03/28/20 Discharge Summary PROCEDURES PERFORMED DURING STAY: [None]. ADMITTING DIAGNOSES: 1. . SECONDARY DIAGNOSES: 1. chronic hypoxic respiratory failure COMPLICATIONS/CHIEF COMPLAINT: Afib With Rvr. HISTORY OF PRESENT ILLNESS: . HOSPITAL COURSE: . DISCHARGE MEDICATIONS: Please see below. ALLERGIES: Please see below. PHYSICAL EXAMINATION ON DISCHARGE: VITAL SIGNS: Please see below. GENERAL: HEENT: NECK: CARDIOVASCULAR EXAMINATION: RESPIRATORY EXAMINATION: ABDOMINAL EXAMINATION: EXTREMITIES: SKIN: NEUROLOGICAL EXAMINATION: PSYCHIATRIC EXAMINATION: LABORATORY DATA: Please see below. IMAGING: PROGNOSIS: ACTIVITY: [As tolerated]. DIET: DISCHARGE PLAN: DISPOSITION: Xfer To Acute Hosp. DISCHARGE INSTRUCTIONS: 1. . ITEMS TO FOLLOWUP ON ON OUTPATIENT: 1. . DISCHARGE CONDITION: [Stable]. TIME SPENT ON DISCHARGE: Greater than minutes. Vital Signs/I&Os Vital Signs Date Time Temp Pulse Resp B/P (MAP) Pulse Ox O2 Delivery O2 Flow Rate FiO2 03/28/20 12:00 2.0 03/28/20 11:01 97.2 69 20 135/72 (93) 100 Nasal Cannula I&O- Last 24 Hours up to 6 AM 03/29/20 06:00 Intake Total 240 ml Output Total 250 ml Balance -10 ml Laboratory Data Labs 24H Laboratory Tests 2 03/28/20 07:25: Nucleated Red Blood Cells % (auto) 0.0, Anion Gap 4L, Glomerular Filtration Rate > 60.0, Calcium Level 9.0 03/28/20 10:24: Coronavirus (COVID-19)(PCR) NEGATIVE CBC/BMP Laboratory Tests 03/28/20 07:25 Discharge Medications Scheduled Amiodarone HCl (Amiodarone HCl) 200 Mg Tablet, 200 MG PO QID Atorvastatin Calcium (Atorvastatin Calcium) 40 Mg Tab, 40 MG PO QHS, (Reported) Bisoprolol Fumarate (Bisoprolol Fumarate) 5 Mg Tab, 5 MG PO BID, (Reported) Budesonide/Formoterol (Symbicort 160-4.5 Mcg Inhaler) 60 Puff/Inhaler Aers, 2 PUFF INH BID, (Reported) Cholecalciferol (Vitamin D3) (Vitamin D3) 1,000 Unit Tablet, 1,000 UNITS PO QHS, (Reported) Latanoprost (Xalatan) 0.005% 2.5ML Drops, 1 DROP OU QHS, (Reported) Montelukast Sodium (Montelukast Sodium) 10 Mg Tab, 10 MG PO DAILY, (Reported) Multivitamin (Multivitamins) 1 Each Capsule, 1 CAP PO QHS, (Reported) Omeprazole (Omeprazole) 20 Mg Cap, 20 MG PO DAILY, (Reported) Tiotropium [place] (Spiriva) 18 Mcg Cap, 1 INHALATION INH DAILY, (Reported) Scheduled PRN Albuterol Sulfate (Ventolin Hfa) 18 Gm Hfa.aer.ad, 2 PUFF INH Q4-6HP PRN for wheezing, (Reported) Alprazolam (Xanax) 0.5 Mg Tab, 0.5 MG PO BID PRN for ANXIETY, (Reported) Loratadine (Loratadine) 10 Mg Tab, 10 MG PO DAILY PRN for allergies, (Reported) Polyvinyl Alcohol/Povidone/Pf (Refresh Classic Eye Drops) 1 Ea Renetta, 1 DROP OU PRN PRN for DRY EYES, (Reported) Allergies Coded Allergies: No Known Allergies (Unverified , 09/11/15) GABRIELLA FULLER MD Mar 29, 2020 07:11
== END 2020-03-28 12:19 | disposition short-term general hospital (02) | DRG 309 ==
LOC: M ED 21:24 → M ED INP 03-27 03:19 → ENRESERV 03-27 04:03 → M PCU 03-27 04:43
PROVIDERS: ADMIT Internal Medicine; ATTEND Internal Medicine
DX: I47.1 Supraventricular tachycardia (principal); J96.10 Chronic respiratory failure, unspecified whether with hypoxia or hypercapnia; I48.92 Unspecified atrial flutter; Z79.899 Other long term (current) drug therapy; I48.91 Unspecified atrial fibrillation; J44.9 Chronic obstructive pulmonary disease, unspecified; K21.9 Gastro-esophageal reflux disease without esophagitis; H40.9 Unspecified glaucoma; Z95.0 Presence of cardiac pacemaker; E78.5 Hyperlipidemia, unspecified; G47.33 Obstructive sleep apnea (adult) (pediatric); J84.10 Pulmonary fibrosis, unspecified; Z85.118 Personal history of other malignant neoplasm of bronchus and lung; I25.10 Atherosclerotic heart disease of native coronary artery without angina pectoris; I11.9 Hypertensive heart disease without heart failure; Z87.891 Personal history of nicotine dependence; I45.10 Unspecified right bundle-branch block

== ENCOUNTER → 2020-05-29 | Emergency (ER) | payer MEDICARE, OTHER ==
[~2020-05-29] MED LIST changes: +ACETAMINOPHEN 325 MG TAB As Ordered ONE; +ACETAMINOPHEN 325 MG TAB ONE; -AMIO200T PO; +AMIO200T3 PO; +D31000TA2 PO; +FUROSEMIDE 40MG/4ML VIAL (J1940) As Ordered ONE; +FUROSEMIDE 40MG/4ML VIAL (J1940) ONE; -VITAD1000T PO; +methylPREDNISolone 125MG 2ML VIAL As Ordered ONE; +methylPREDNISolone 125MG 2ML VIAL ONE
--- NOTE | 2020-07-12 16:47 | ECGEPIP ---
VENTRICULAR PACEMAKER LBBB SEE SCANNED DOWNTIME REPORT MTDD
--- NOTE | 2020-07-12 16:48 | ECGEPIP ---
ATRIAL PACEMAKER LAD LBBB SEE SCANNED DOWNTIME REPORT MTDD
[2020-07-15 09:24] LABS: BASO % 0.5 % (0.0-1.0); EOS # 0.1 10^3/uL (0.0-0.5); HEMATOCRIT 46.8 % (42.0-52.0); HEMOGLOBIN 14.5 g/dl (13.5-17.5); LYMPH # 0.8 10^3/uL (1.5-5.0); LYMPH % 9.6 % (24.0-44.0); MEAN CORPUSCULAR HEMOGLOBIN 30.4 pg (27.0-33.0); MEAN CORPUSCULAR VOLUME 98.1 fl (80.0-96.0); MONO # 0.5 10^3/uL (0.0-0.8); MONO % 5.7 % (0.0-5.0); NEUTROPHILS # 6.5 10^3/uL (1.5-8.5); NEUTROPHILS % 82.6 % (36.0-66.0); PLATELET COUNT, AUTOMATED 146 10^3/uL (150-450); RED BLOOD COUNT 4.77 10^6/uL (4.30-6.10); WHITE BLOOD COUNT 7.9 10^3/uL (4.0-10.0)
[2020-08-12 12:27] LABS: ABG BASE EXCESS -0.4 (-2.0-2.0); ABG HCO3 26.7 MEQ/L (22.0-26.0); ABG PARTIAL PRESSURE CO2 54.2 mmHg (35.0-45.0); ABG SITE NOT GIVEN; ABG STANDARD HCO3 24.2 MEQ/L (22.0-26.0); ABG TOTAL CO2 28.3 MEQ/L (23.0-31.0)
[2020-08-12 12:28] LABS: ABG O2 SATURATION 99.2 % (95.0-99.0)
[2020-08-12 12:34] LABS: ALT/SGPT 45 U/L (12-78); BILIRUBIN,DIRECT 0.3 MG/DL (0.0-0.2); BILIRUBIN,TOTAL 0.8 MG/DL (0.2-1.0); BLOOD UREA NITROGEN 24 MG/DL (7-18); CALCIUM LEVEL 9.3 MG/DL (8.8-10.2); CARBON DIOXIDE LEVEL 35 MEQ/L (21-32); CHLORIDE LEVEL 104 MEQ/L (98-107); CK-MB VALUE MASS 1.9 NG/ML (<3.6); CPK CREATINE PHOSPHOKINASE 76 U/L (39-308); CREATININE FOR GFR 1.27 MG/DL (0.70-1.30); FREE T4 1.17 NG/DL (0.76-1.46); GLOMERULAR FILTRATION RATE 59.3 (>42); GLUCOSE, FASTING 179 MG/DL (70-100); NT-PRO BNP 976 PG/ML (<125); POTASSIUM SERUM 4.3 MEQ/L (3.5-5.1); SODIUM LEVEL 140 MEQ/L (136-145); THYROID STIMULATING HORMONE 0.996 uIU/ML (0.358-3.740); TROPONIN I < 0.02 NG/ML (< 0.10)
== END | disposition home or self-care (01) ==
LOC: M ED 16:00
DX: I50.9 Heart failure, unspecified (principal); T82.118A Breakdown (mechanical) of other cardiac electronic device, initial encounter; R91.8 Other nonspecific abnormal finding of lung field; I11.0 Hypertensive heart disease with heart failure; J44.9 Chronic obstructive pulmonary disease, unspecified; E78.5 Hyperlipidemia, unspecified; Z79.01 Long term (current) use of anticoagulants; Z79.84 Long term (current) use of oral hypoglycemic drugs; Z79.899 Other long term (current) drug therapy
CPT/HCPCS: 71046; 80048; 80076; 82550; 82553; 82803; 83880; 84439; 84443; 84484; 85025; 85610; 85730; 87040; 87486; 87581; 87633; 87798; 93005; 96374; 96375; 99285; J1940; J2930

== ENCOUNTER → 2021-08-21 | Outpatient (CLI) | payer MEDICARE, OTHER ==
[~2021-08-21] MED LIST changes: -ACETAMINOPHEN 325 MG TAB As Ordered ONE; -ACETAMINOPHEN 325 MG TAB ONE; -FOLI400T PO; +FOLI400T13 PO; -FUROSEMIDE 40MG/4ML VIAL (J1940) As Ordered ONE; -FUROSEMIDE 40MG/4ML VIAL (J1940) ONE; -LISI-542 PO; +LISI-898 PO; +LISI10TA22 PO; -LISI10TA4 PO; +MONT10TA10 PO; -MONT10TA4 PO; -methylPREDNISolone 125MG 2ML VIAL As Ordered ONE; -methylPREDNISolone 125MG 2ML VIAL ONE
[2021-08-21 16:00] LABS: HEMATOCRIT 45.9 % (42.0-52.0); HEMOGLOBIN 14.2 g/dl (13.5-17.5); MEAN CORPUSCULAR HEMOGLOBIN 30.2 pg (27.0-33.0); MEAN CORPUSCULAR HGB CONC 30.9 g/dl (32.0-36.5); MEAN CORPUSCULAR VOLUME 97.7 fl (80.0-96.0); PLATELET COUNT, AUTOMATED 152 10^3/uL (150-450); WHITE BLOOD COUNT 8.7 10^3/uL (4.0-10.0)
[2021-08-21 16:36] LABS: ALBUMIN 3.8 GM/DL (3.2-5.2); ALT/SGPT 33 U/L (12-78); BILIRUBIN,TOTAL 0.8 MG/DL (0.2-1.0); BLOOD UREA NITROGEN 20 MG/DL (7-18); CALCIUM LEVEL 9.4 MG/DL (8.8-10.2); CARBON DIOXIDE LEVEL 37 MEQ/L (21-32); CHLORIDE LEVEL 101 MEQ/L (98-107); CREATININE FOR GFR 0.99 MG/DL (0.70-1.30); GLOMERULAR FILTRATION RATE > 60.0 (>42); GLUCOSE, FASTING 143 MG/DL (70-100); NT-PRO BNP 223 PG/ML (<125); POTASSIUM SERUM 4.1 MEQ/L (3.5-5.1); SODIUM LEVEL 137 MEQ/L (136-145); TOTAL PROTEIN 6.9 GM/DL (6.4-8.2)
== END ==
LOC: M WUC 10:31
PROVIDERS: ATTEND Physician Assistant
DX: R06.02 Shortness of breath (principal)

== ENCOUNTER → 2022-01-24 | Outpatient (REF) | payer OTHER, MEDICARE ==
[~2022-01-24] MED LIST changes: -AMIO200T3 PO; +AMIO200T49 PO; -D31000TA2 PO; -LISI-898 PO; +LISI5TAB11 PO; -MONT10TA10 PO; +MONT10TA97 PO; +VITA100093 PO
== END ==
LOC: M WUC 15:30
PROVIDERS: ATTEND Internal Medicine Pulmonary Disease
DX: J43.9 Emphysema, unspecified (principal)

== ENCOUNTER 2022-03-02 21:03 | Inpatient (IN) | payer OTHER ==
[~2022-03-02] VITALS: Ht 182.9 cm; Wt 88.3 kg
[2022-03-02] MEDS: SYMBICORT 80/4.5MCG INHALER 6GM INH SCH (20:00)
[2022-03-02] MEDS ORDERED: methylPREDNISolone 125MG 2ML VIAL IV ONE (21:25)
[2022-03-02] MEDS: IPRATROPIUM 0.5MG/ALBUTEROL 2.5MG INH SOL UD 3ML (DUONEB) NEB PRN ×2 (21:33→22:12)
[2022-03-02 21:39] LABS: VENOUS BASE EXCESS 1.9 (-2.0-2.0); VENOUS HCO3 33.2 MEQ/L (23.0-27.0); VENOUS O2 SATURATION 71.1 % (60.0-80.0); VENOUS PARTIAL PRESSURE CO2 87.1 mmHg (38.0-50.0); VENOUS PARTIAL PRESSURE O2 40.9 mmHg (30.0-50.0); VENOUS PH 7.199 UNITS (7.330-7.430); VENOUS STANDARD HCO3 25.4 MEQ/L; VENOUS TOTAL CO2 35.9 MEQ/L (24.0-28.0)
[2022-03-02 21:48] LABS: BASO # 0.1 10^3/uL (0.0-0.2); BASO % 0.4 % (0.0-1.0); EOS % 0.1 % (0.0-3.0); HEMATOCRIT 47.2 % (42.0-52.0); HEMOGLOBIN 15.1 g/dl (13.5-17.5); LYMPH # 0.8 10^3/uL (1.5-5.0); LYMPH % 5.7 % (24.0-44.0); MEAN CORPUSCULAR HEMOGLOBIN 31.3 pg (27.0-33.0); MEAN CORPUSCULAR VOLUME 97.7 fl (80.0-96.0); MONO % 6.8 % (2.0-8.0); NEUTROPHILS # 12.5 10^3/uL (1.5-8.5); NEUTROPHILS % 86.4 % (36.0-66.0); PLATELET COUNT, AUTOMATED 128 10^3/uL (150-450); RED BLOOD COUNT 4.83 10^6/uL (4.30-6.10); WHITE BLOOD COUNT 14.5 10^3/uL (4.0-10.0)
[2022-03-02 22:15] LABS: ALBUMIN 4.2 GM/DL (3.2-5.2); ALT/SGPT 38 U/L (12-78); BILIRUBIN,DIRECT 0.2 MG/DL (0.0-0.2); BILIRUBIN,TOTAL 0.4 MG/DL (0.2-1.0); BLOOD UREA NITROGEN 26 MG/DL (7-18); CALCIUM LEVEL 9.2 MG/DL (8.8-10.2); CARBON DIOXIDE LEVEL 34 MEQ/L (21-32); CHLORIDE LEVEL 104 MEQ/L (98-107); CREATININE FOR GFR 0.98 MG/DL (0.70-1.30); GLOMERULAR FILTRATION RATE > 60.0 (>42); GLUCOSE, FASTING 151 MG/DL (70-100); NT-PRO BNP 228 PG/ML (<125); POTASSIUM SERUM 4.5 MEQ/L (3.5-5.1); SODIUM LEVEL 140 MEQ/L (136-145); THYROID STIMULATING HORMONE 0.984 uIU/ML (0.358-3.740); TOTAL PROTEIN 7.4 GM/DL (6.4-8.2)
[2022-03-02 22:43] LABS: MB/CK RELATIVE INDEX 3.7 (< OR =4)
[2022-03-02 22:46] LABS: ABG BASE EXCESS 2.6 (-2.0-2.0); ABG HCO3 30.9 MEQ/L (22.0-26.0); ABG O2 SATURATION 98.3 % (95.0-99.0); ABG PARTIAL PRESSURE O2 139.9 mmHg (75.0-100.0); ABG STANDARD HCO3 26.8 MEQ/L (22.0-26.0); ABG TOTAL CO2 32.9 MEQ/L (23.0-31.0)
[2022-03-02 22:47] LABS: ABG PARTIAL PRESSURE CO2 64.3 mmHg (35.0-45.0)
[2022-03-02] MEDS ORDERED: ATOR80TA59 PO (23:32)
[2022-03-02] MEDS ORDERED: SPIR12.9 INH (23:32)
[2022-03-02] MEDS ORDERED: MOM 30ML SUSPENSION UDC PO PRN (23:35)
[2022-03-02] MEDS ORDERED: ACETAMINOPHEN TAB 650MG DOSE (2X325MG) PO PRN (23:35)
[2022-03-02] MEDS ORDERED: med rec comment (23:39)
[2022-03-02] MEDS ORDERED: ELIQ5TAB PO (23:39)
[2022-03-02] MEDS ORDERED: BROV15NE NEB (23:39)
[2022-03-02] MEDS ORDERED: BUDE0.5S6 INH (23:39)
[2022-03-02] MEDS ORDERED: ALB2.5NEB INH (23:39)
[2022-03-02] MEDS ORDERED: THEO400T4 PO (23:39)
[2022-03-02] MEDS ORDERED: ENTR1TAB PO (23:39)
[2022-03-02] MEDS ORDERED: HOME MED LIST COMPLETE! XX SCH (23:40)
[2022-03-03] VITALS (9 sets, daily range): BP systolic 84–122; BP diastolic 55–76; O2SAT 95–100
[2022-03-03] MEDS: IPRATROPIUM 0.5MG/ALBUTEROL 2.5MG INH SOL UD 3ML (DUONEB) NEB SCH ×4 (02:00→19:23)
[2022-03-03 04:59] LABS: HEMATOCRIT 42.6 % (42.0-52.0); HEMOGLOBIN 13.6 g/dl (13.5-17.5); MEAN CORPUSCULAR HEMOGLOBIN 31.1 pg (27.0-33.0); MEAN CORPUSCULAR HGB CONC 31.9 g/dl (32.0-36.5); MEAN CORPUSCULAR VOLUME 97.5 fl (80.0-96.0); PLATELET COUNT, AUTOMATED 116 10^3/uL (150-450); RED BLOOD COUNT 4.37 10^6/uL (4.30-6.10); WHITE BLOOD COUNT 7.4 10^3/uL (4.0-10.0)
[2022-03-03 05:25] LABS: ALBUMIN 3.6 GM/DL (3.2-5.2); ALT/SGPT 34 U/L (12-78); BILIRUBIN,TOTAL 0.7 MG/DL (0.2-1.0); BLOOD UREA NITROGEN 30 MG/DL (7-18); CALCIUM LEVEL 9.4 MG/DL (8.8-10.2); CARBON DIOXIDE LEVEL 33 MEQ/L (21-32); CHLORIDE LEVEL 104 MEQ/L (98-107); GLOMERULAR FILTRATION RATE > 60.0 (>42); GLUCOSE, FASTING 152 MG/DL (70-100); MAGNESIUM LEVEL 1.6 MG/DL (1.8-2.4); POTASSIUM SERUM 4.6 MEQ/L (3.5-5.1); SODIUM LEVEL 138 MEQ/L (136-145); TOTAL PROTEIN 6.9 GM/DL (6.4-8.2)
[2022-03-03] MEDS: methylPREDNISolone 125MG 2ML VIAL IV SCH ×3 (05:34→22:15)
[2022-03-03] MEDS ORDERED: HEPARIN SOD (PORCINE) 5000UNITS/ML 1ML VIAL/SYRINGE SC SCH (06:00)
[2022-03-03 07:25] LABS: ABG BASE EXCESS 3.1 (-2.0-2.0); ABG HCO3 28.1 MEQ/L (22.0-26.0); ABG O2 SATURATION 97.9 % (95.0-99.0); ABG PARTIAL PRESSURE CO2 44.3 mmHg (35.0-45.0); ABG PARTIAL PRESSURE O2 108.7 mmHg (75.0-100.0); ABG STANDARD HCO3 27.2 MEQ/L (22.0-26.0); ABG TOTAL CO2 29.4 MEQ/L (23.0-31.0)
[2022-03-03] MEDS: SYMBICORT 80/4.5MCG INHALER 6GM INH SCH ×2 (07:25→19:22)
[2022-03-03] MEDS: DOCUSATE SODIUM 100MG CAPSULE PO SCH ×2 (09:00→20:44)
[2022-03-03] MEDS: PANTOPRAZOLE 40MG VIAL IV SCH (09:02)
[2022-03-03] MEDS: ATORVASTATIN 20 MG TAB PO SCH (09:02)
[2022-03-03] MEDS: bisoproloL fumarate 5 MG TAB PO SCH ×2 (09:02→20:46)
[2022-03-03] MEDS: MONTELUKAST 10 MG TAB PO SCH (09:03)
[2022-03-03] MEDS: APIXABAN 5 MG TAB (ELIQUIS) PO SCH ×2 (09:03→20:44)
[2022-03-03] MEDS: ENTRESTO 24-26MG TABLET (SACUBITRIL/VALSARTAN) PO SCH ×2 (09:03→20:45)
[2022-03-03] MEDS ORDERED: LATANOPROST 0.005% OPHTH SOLN 2.5 ML OU SCH (21:00)
[2022-03-04] VITALS: BP 130/62
[2022-03-04] MEDS: IPRATROPIUM 0.5MG/ALBUTEROL 2.5MG INH SOL UD 3ML (DUONEB) NEB SCH ×3 (00:26→13:29)
[2022-03-04 04:00] VITALS: BP 122/67
[2022-03-04 04:17] LABS: HEMATOCRIT 40.7 % (42.0-52.0); HEMOGLOBIN 13.2 g/dl (13.5-17.5); MEAN CORPUSCULAR HGB CONC 32.4 g/dl (32.0-36.5); MEAN CORPUSCULAR VOLUME 95.5 fl (80.0-96.0); PLATELET COUNT, AUTOMATED 122 10^3/uL (150-450); RED BLOOD COUNT 4.26 10^6/uL (4.30-6.10); WHITE BLOOD COUNT 18.7 10^3/uL (4.0-10.0)
[2022-03-04 04:35] LABS: BLOOD UREA NITROGEN 35 MG/DL (7-18); CALCIUM LEVEL 9.5 MG/DL (8.8-10.2); CARBON DIOXIDE LEVEL 31 MEQ/L (21-32); CHLORIDE LEVEL 107 MEQ/L (98-107); CREATININE FOR GFR 0.94 MG/DL (0.70-1.30); GLOMERULAR FILTRATION RATE > 60.0 (>42); GLUCOSE, FASTING 166 MG/DL (70-100); POTASSIUM SERUM 4.8 MEQ/L (3.5-5.1); SODIUM LEVEL 142 MEQ/L (136-145)
[2022-03-04] MEDS: methylPREDNISolone 125MG 2ML VIAL IV SCH ×2 (05:31→14:52)
[2022-03-04] MEDS ORDERED: PRED10TA2 PO (07:33)
[2022-03-04] MEDS ORDERED: DOXY-350 PO (07:33)
[2022-03-04] MEDS: SYMBICORT 80/4.5MCG INHALER 6GM INH SCH (07:40)
[2022-03-04 08:00] VITALS: BP 131/58
[2022-03-04] MEDS: DOCUSATE SODIUM 100MG CAPSULE PO SCH (08:36)
[2022-03-04] MEDS: ATORVASTATIN 20 MG TAB PO SCH (08:53)
[2022-03-04] MEDS: PANTOPRAZOLE 40MG VIAL IV SCH (08:53)
[2022-03-04] MEDS: APIXABAN 5 MG TAB (ELIQUIS) PO SCH (08:53)
[2022-03-04] MEDS: MONTELUKAST 10 MG TAB PO SCH (08:53)
[2022-03-04 08:54] VITALS: BP 131/58
[2022-03-04] MEDS: bisoproloL fumarate 5 MG TAB PO SCH (08:54)
[2022-03-04] MEDS: ENTRESTO 24-26MG TABLET (SACUBITRIL/VALSARTAN) PO SCH (08:54)
== END 2022-03-04 17:06 | disposition home health service (06) | DRG 189 ==
LOC: EDBD 21:03 → M ED 21:03 → M ED INP 23:33 → ENRESERV 03-03 01:13 → M ICU 03-03 01:48
PROVIDERS: ADMIT Family Medicine; ATTEND General Practice
DX: J96.02 Acute respiratory failure with hypercapnia (principal); Q60.0 Renal agenesis, unilateral; J44.1 Chronic obstructive pulmonary disease with (acute) exacerbation; I48.20 Chronic atrial fibrillation, unspecified; J96.21 Acute and chronic respiratory failure with hypoxia; K21.9 Gastro-esophageal reflux disease without esophagitis; Z95.0 Presence of cardiac pacemaker; E78.5 Hyperlipidemia, unspecified; Z85.118 Personal history of other malignant neoplasm of bronchus and lung; Z66 Do not resuscitate; Z79.899 Other long term (current) drug therapy; Z87.442 Personal history of urinary calculi; Z87.891 Personal history of nicotine dependence

== ENCOUNTER 2022-06-17 15:49 | Emergency (ER) | payer OTHER ==
[~2022-06-17] VITALS: Ht 182.9 cm; Wt 90.0 kg
[~2022-06-17 15:49] MED LIST changes: +ALB2.5NEB INH; +ALBU8.5H INH; +ATOR80TA59 PO; +BROV15NE INH; +BROV15NE NEB; +BUDE0.5S6 INH; +DOXY-350 PO; +ENTR1TAB PO; +PRED10TA2 PO; +PRED20TA PO; +SPIR12.9 INH; +THEO400T4 PO; +med rec comment
[2022-06-17 15:50] VITALS: BP 159/82
== END 2022-06-17 16:00 | disposition left against medical advice (07) ==
LOC: M ED 15:49
DX: Z53.21 Procedure and treatment not carried out due to patient leaving prior to being seen by health care provider (principal)

== ENCOUNTER 2022-07-07 13:56 | Emergency (ER) | payer OTHER ==
[~2022-07-07] VITALS: Ht 182.9 cm; Wt 87.7 kg
[2022-07-07 17:58] LABS: BASO % 0.7 % (0.0-1.0); EOS # 0.3 10^3/uL (0.0-0.5); EOS % 5.8 % (0.0-3.0); HEMATOCRIT 46.4 % (42.0-52.0); HEMOGLOBIN 14.6 g/dl (13.5-17.5); LYMPH # 1.8 10^3/uL (1.5-5.0); LYMPH % 31.9 % (24.0-44.0); MEAN CORPUSCULAR HEMOGLOBIN 30.7 pg (27.0-33.0); MEAN CORPUSCULAR HGB CONC 31.5 g/dl (32.0-36.5); MEAN CORPUSCULAR VOLUME 97.5 fl (80.0-96.0); MONO # 0.6 10^3/uL (0.0-0.8); MONO % 11.1 % (2.0-8.0); NEUTROPHILS # 2.9 10^3/uL (1.5-8.5); NEUTROPHILS % 50.1 % (36.0-66.0); PLATELET COUNT, AUTOMATED 163 10^3/uL (150-450); RED BLOOD COUNT 4.76 10^6/uL (4.30-6.10); WHITE BLOOD COUNT 5.7 10^3/uL (4.0-10.0)
[2022-07-07 18:10] LABS: ABG BASE EXCESS 2.4 (-2.0-2.0); ABG HCO3 29.3 MEQ/L (22.0-26.0); ABG O2 SATURATION 98.8 % (95.0-99.0); ABG PARTIAL PRESSURE CO2 54.7 mmHg (35.0-45.0); ABG PARTIAL PRESSURE O2 152.3 mmHg (75.0-100.0); ABG STANDARD HCO3 26.6 MEQ/L (22.0-26.0); ABG TOTAL CO2 30.9 MEQ/L (23.0-31.0); ABG pH (ARTERIAL) 7.346 UNITS (7.350-7.450)
[2022-07-07] MEDS ORDERED: methylPREDNISolone 125MG 2ML VIAL IV ONE (18:15)
[2022-07-07 18:22] LABS: INR 1.17; PROTHROMBIN TIME 15.4 SECONDS (12.7-14.5)
[2022-07-07] MEDS: IPRATROPIUM 0.5MG/ALBUTEROL 2.5MG INH SOL UD 3ML (DUONEB) NEB PRN ×2 (18:23→19:19)
[2022-07-07 18:55] LABS: CK-MB VALUE MASS 1.3 NG/ML (<3.6); MB/CK RELATIVE INDEX 2.17 (< OR =4)
[2022-07-07 19:03] LABS: ALT/SGPT 26 U/L (12-78); BILIRUBIN,DIRECT 0.1 MG/DL (0.0-0.2); BILIRUBIN,TOTAL 0.4 MG/DL (0.2-1.0); BLOOD UREA NITROGEN 15 MG/DL (7-18); CALCIUM LEVEL 9.8 MG/DL (8.8-10.2); CARBON DIOXIDE LEVEL 34 MEQ/L (21-32); CHLORIDE LEVEL 102 MEQ/L (98-107); CREATININE FOR GFR 0.89 MG/DL (0.70-1.30); GLOMERULAR FILTRATION RATE > 60.0 (>42); GLUCOSE, FASTING 92 MG/DL (70-100); NT-PRO BNP 144 PG/ML (<125); POTASSIUM SERUM 4.5 MEQ/L (3.5-5.1); SODIUM LEVEL 139 MEQ/L (136-145); THYROXINE (T4) 6.5 UG/DL (4.5-12.0); TOTAL PROTEIN 7.2 GM/DL (6.4-8.2)
[2022-07-07] MEDS ORDERED: ISOVUE-370 76% 100ML VIAL As Ordered ONE (19:30)
[2022-07-07 20:31] LABS: CK-MB VALUE MASS 1.9 NG/ML (<3.6); MB/CK RELATIVE INDEX 3.06 (< OR =4)
[2022-07-07 21:13] VITALS: O2SAT 97
[2022-07-07] MEDS ORDERED: PRED20TA PO (21:21)
[2022-07-07 21:42] VITALS: BP 140/61
== END 2022-07-07 21:45 | disposition home or self-care (01) ==
LOC: M ED 13:56
DX: J44.1 Chronic obstructive pulmonary disease with (acute) exacerbation (principal); Z86.16 Personal history of COVID-19; I48.91 Unspecified atrial fibrillation; I50.9 Heart failure, unspecified; I27.20 Pulmonary hypertension, unspecified; Z85.118 Personal history of other malignant neoplasm of bronchus and lung; Z90.5 Acquired absence of kidney; Z90.79 Acquired absence of other genital organ(s); Z95.0 Presence of cardiac pacemaker; Z79.01 Long term (current) use of anticoagulants; Z79.899 Other long term (current) drug therapy
CPT/HCPCS: 36600; 71045; 71275; 80048; 80076; 82550; 82553; 82803; 83605; 83880; 84436; 84443; 84484; 85025; 85610; 87040; 87486; 87581; 87633; 87798; 93005; 93041; 93971; 94640; 94760; 96374; 99285; J2930; Q9967

== ENCOUNTER → 2022-08-12 | Outpatient (CLI) | payer MEDICARE ==
[2022-08-12 19:08] LABS: BLOOD UREA NITROGEN 20 MG/DL (7-18); CALCIUM LEVEL 9.4 MG/DL (8.8-10.2); CARBON DIOXIDE LEVEL 35 MEQ/L (21-32); CHLORIDE LEVEL 102 MEQ/L (98-107); CREATININE FOR GFR 0.96 MG/DL (0.70-1.30); GLOMERULAR FILTRATION RATE > 60.0 (>42); GLUCOSE, FASTING 167 MG/DL (70-100); MAGNESIUM LEVEL 1.6 MG/DL (1.8-2.4); POTASSIUM SERUM 4.1 MEQ/L (3.5-5.1); SODIUM LEVEL 141 MEQ/L (136-145)
== END ==
LOC: M WUC 15:05
PROVIDERS: ATTEND Internal Medicine Cardiovascular Disease
DX: I11.9 Hypertensive heart disease without heart failure (principal)

== ENCOUNTER 2022-10-25 14:37 | Emergency (ER) | payer MEDICARE ==
[~2022-10-25] VITALS: Ht 182.9 cm; Wt 92.4 kg
[~2022-10-25 14:37] MED LIST changes: -DOXY-350 PO; +DOXY-444 PO
[2022-10-25 15:55] LABS: BASO % 0.6 % (0.0-1.0); EOS # 0.2 10^3/uL (0.0-0.5); EOS % 3.7 % (0.0-3.0); HEMATOCRIT 45.2 % (42.0-52.0); HEMOGLOBIN 14.3 g/dl (13.5-17.5); LYMPH # 1.5 10^3/uL (1.5-5.0); LYMPH % 22.7 % (24.0-44.0); MEAN CORPUSCULAR HEMOGLOBIN 30.6 pg (27.0-33.0); MEAN CORPUSCULAR HGB CONC 31.6 g/dl (32.0-36.5); MEAN CORPUSCULAR VOLUME 96.8 fl (80.0-96.0); MONO # 0.7 10^3/uL (0.0-0.8); MONO % 10.4 % (2.0-8.0); NEUTROPHILS # 4.1 10^3/uL (1.5-8.5); NEUTROPHILS % 62.3 % (36.0-66.0); PLATELET COUNT, AUTOMATED 122 10^3/uL (150-450); RED BLOOD COUNT 4.67 10^6/uL (4.30-6.10); WHITE BLOOD COUNT 6.6 10^3/uL (4.0-10.0)
[2022-10-25 16:23] LABS: ALBUMIN 3.9 G/DL (3.2-5.2); BILIRUBIN,DIRECT 0.2 MG/DL (<0.4); BILIRUBIN,TOTAL 0.6 MG/DL (0.3-1.2); TOTAL PROTEIN 6.7 G/DL (5.7-8.2)
[2022-10-25] MEDS ORDERED: HYDR-3713 PO (17:07)
[2022-10-25 17:16] VITALS: BP 117/66
== END 2022-10-25 18:13 | disposition home or self-care (01) ==
LOC: M ED 14:37
DX: N20.0 Calculus of kidney (principal); C34.90 Malignant neoplasm of unspecified part of unspecified bronchus or lung; I48.91 Unspecified atrial fibrillation; I50.9 Heart failure, unspecified; I25.2 Old myocardial infarction; I10 Essential (primary) hypertension; Z92.21 Personal history of antineoplastic chemotherapy; Z92.3 Personal history of irradiation; Z85.49 Personal history of malignant neoplasm of other male genital organs; Z99.81 Dependence on supplemental oxygen; Z87.442 Personal history of urinary calculi; Z95.0 Presence of cardiac pacemaker; Z98.61 Coronary angioplasty status; Z87.891 Personal history of nicotine dependence; Z79.899 Other long term (current) drug therapy; Z79.01 Long term (current) use of anticoagulants

== ENCOUNTER → 2022-11-18 | Outpatient (CLI) | payer MEDICARE ==
[~2022-11-18] MED LIST changes: +FLUT15.820; +HYDR-3713 PO; +MAGN200T PO
[2022-11-18 17:33] LABS: MAGNESIUM LEVEL 1.6 MG/DL (1.8-2.4)
[2022-11-18 17:34] LABS: ALBUMIN 3.9 G/DL (3.2-5.2); BLOOD UREA NITROGEN 20 MG/DL (9-23); CALCIUM LEVEL 9.2 MG/DL (8.3-10.6); CARBON DIOXIDE LEVEL 35 MMOL/L (20-31); CHLORIDE LEVEL 104 MMOL/L (98-107); CREATININE FOR GFR 0.83 MG/DL (0.70-1.30); GLOMERULAR FILTRATION RATE > 60.0 (>42); GLUCOSE, FASTING 147 MG/DL (74-106); PHOSPHORUS LEVEL 3.7 MG/DL (2.4-5.1); POTASSIUM SERUM 4.1 MMOL/L (3.5-5.1); SODIUM LEVEL 143 MMOL/L (136-145)
== END ==
LOC: M WUC 13:53
PROVIDERS: ATTEND Physician Assistant
DX: I42.0 Dilated cardiomyopathy (principal)

== ENCOUNTER → 2022-11-18 | Outpatient (CLI) | payer MEDICARE ==
[2022-11-18 17:32] LABS: HEMATOCRIT 45.7 % (42.0-52.0); HEMOGLOBIN 14.2 g/dl (13.5-17.5); MEAN CORPUSCULAR HEMOGLOBIN 30.8 pg (27.0-33.0); MEAN CORPUSCULAR HGB CONC 31.1 g/dl (32.0-36.5); MEAN CORPUSCULAR VOLUME 99.1 fl (80.0-96.0); PLATELET COUNT, AUTOMATED 144 10^3/uL (150-450); RED BLOOD COUNT 4.61 10^6/uL (4.30-6.10); WHITE BLOOD COUNT 6.8 10^3/uL (4.0-10.0)
[2022-11-18 17:38] LABS: BLOOD UREA NITROGEN 20 MG/DL (9-23); CALCIUM LEVEL 9.1 MG/DL (8.3-10.6); CARBON DIOXIDE LEVEL 35 MMOL/L (20-31); CHLORIDE LEVEL 103 MMOL/L (98-107); CREATININE FOR GFR 0.81 MG/DL (0.70-1.30); GLOMERULAR FILTRATION RATE > 60.0 (>42); GLUCOSE, FASTING 148 MG/DL (74-106); POTASSIUM SERUM 4.1 MMOL/L (3.5-5.1); SODIUM LEVEL 142 MMOL/L (136-145)
[2022-11-18 17:46] LABS: INR 1.05; PARTIAL THROMBOPLASTIN TIME 31.3 SECONDS (24.8-34.2); PROTHROMBIN TIME 13.9 SECONDS (12.5-14.5)
[2022-11-18 20:11] LABS: MAU/CREAT RATIO 25.4 MCG/MG (0.0-30.0)
== END ==
LOC: M WUC 13:59
PROVIDERS: ATTEND Nurse Practitioner Women's Health
DX: Z01.818 Encounter for other preprocedural examination (principal); N20.0 Calculus of kidney; J43.9 Emphysema, unspecified; I70.0 Atherosclerosis of aorta; Z95.0 Presence of cardiac pacemaker; I42.0 Dilated cardiomyopathy

== ENCOUNTER → 2022-11-23 | Outpatient (CLI) | payer MEDICARE | LOC: M LABSMTC 11:27 | PROVIDERS: ATTEND Anesthesiology | DX: Z01.812 Encounter for preprocedural laboratory examination (principal); Z11.52 Encounter for screening for COVID-19 ==

== ENCOUNTER 2022-11-26 06:05 | Day surgery (SDC) | payer MEDICARE ==
[~2022-11-26] VITALS: Ht 182.9 cm; Wt 88.5 kg
[2022-11-26] MEDS ORDERED: ceFAZolin SOD 2 GM in IV 1 EA IV ONE (06:30)
[2022-11-26] MEDS ORDERED: ONDANSETRON 4MG 2ML VIAL As Ordered ONE (06:55)
[2022-11-26] MEDS ORDERED: propofoL 200 MG/20 ML VIAL As Ordered ONE (06:55)
[2022-11-26] MEDS ORDERED: LIDOCAINE 2% 100MG/5ML SDV (FOR ANES.) As Ordered ONE (06:55)
[2022-11-26] MEDS ORDERED: fentaNYL 100 MCG/2 ML INJECTION As Ordered ONE (07:09)
[2022-11-26] MEDS ORDERED: ISOVUE-300 61% 100ML VIAL As Ordered ONE (07:12)
[2022-11-26] MEDS ORDERED: ACETAMINOPHEN 1000MG 100ML IV BAG As Ordered ONE (07:55)
[2022-11-26] MEDS ORDERED: PHENYLephrine 500MCG 5ML (100MCG/ML) SYRINGE As Ordered ONE (08:06)
[2022-11-26] MEDS ORDERED: LR 1,000 ML IV SCH ×2 (08:35→08:55)
[2022-11-26] MEDS ORDERED: ISOVUE-M 300 61% 15ML VIAL As Ordered ONE (08:55)
[2022-11-26] MEDS ORDERED: ONDANSETRON 4MG 2ML VIAL IV PRN (08:55)
[2022-11-26] MEDS ORDERED: fentaNYL 100 MCG/2 ML INJECTION IV PRN (08:55)
[2022-11-26] MEDS ORDERED: oxyCODONE 5MG TAB PO PRN (08:55)
[2022-11-26] MEDS ORDERED: PERCOCET 5MG/325MG TAB PO PRN (09:05)
[2022-11-26 10:15] VITALS: BP 153/72
[2022-12-01 13:07] LABS: CA Oxalate Dihy 20 % (.); Ca Ox Monohydrate 80 % (.); Size 4x7 mm (.)
== END 2022-11-26 10:15 | disposition home or self-care (01) ==
LOC: M SDC 06:05
PROVIDERS: ATTEND Urology
DX: N20.0 Calculus of kidney (principal); I48.91 Unspecified atrial fibrillation; I25.2 Old myocardial infarction; E78.5 Hyperlipidemia, unspecified; J44.9 Chronic obstructive pulmonary disease, unspecified; Z95.0 Presence of cardiac pacemaker; Z79.01 Long term (current) use of anticoagulants; Z79.899 Other long term (current) drug therapy; Z85.46 Personal history of malignant neoplasm of prostate; Z85.118 Personal history of other malignant neoplasm of bronchus and lung; Z92.3 Personal history of irradiation; Z92.21 Personal history of antineoplastic chemotherapy; G47.33 Obstructive sleep apnea (adult) (pediatric)
CPT/HCPCS: 52356; 74420; 82365; C1769; C1894; C2617; J0131; J0690; J1100; J2370; J2405; J3010; Q9967

== ENCOUNTER → 2023-05-06 | Outpatient (CLI) | payer MEDICARE, OTHER ==
[~2023-05-06] MED LIST changes: +DILT120C41 PO; -DILT1CAP PO
[2023-05-06 17:54] LABS: ALBUMIN 3.8 G/DL (3.2-5.2); BLOOD UREA NITROGEN 16 MG/DL (9-23); CALCIUM LEVEL 10.5 MG/DL (8.3-10.6); CARBON DIOXIDE LEVEL 35 MMOL/L (20-31); CHLORIDE LEVEL 100 MMOL/L (98-107); CREATININE FOR GFR 0.74 MG/DL (0.70-1.30); GLOMERULAR FILTRATION RATE > 60.0 (>42); GLUCOSE, FASTING 101 MG/DL (74-106); MAGNESIUM LEVEL 1.7 MG/DL (1.8-2.4); PHOSPHORUS LEVEL 3.6 MG/DL (2.4-5.1); SODIUM LEVEL 140 MMOL/L (136-145)
== END ==
LOC: M WUC 13:48
PROVIDERS: ATTEND Student in an Organized Health Care Education/Training Program
DX: I42.0 Dilated cardiomyopathy (principal)

== ENCOUNTER → 2023-09-01 | Outpatient (CLI) | payer OTHER, MEDICARE | LOC: M WUC 15:07 | PROVIDERS: ATTEND Internal Medicine Pulmonary Disease | DX: J45.50 Severe persistent asthma, uncomplicated (principal) ==

== ENCOUNTER → 2023-09-29 | Outpatient (CLI) | payer MEDICARE | LOC: M WUC 15:51 | PROVIDERS: ATTEND Internal Medicine Pulmonary Disease | DX: J45.50 Severe persistent asthma, uncomplicated (principal) ==

== ENCOUNTER → 2024-02-11 | Outpatient (CLI) | payer MEDICARE | LOC: M WUC 15:33 | PROVIDERS: ATTEND Internal Medicine Pulmonary Disease | DX: J43.9 Emphysema, unspecified (principal) ==

== ENCOUNTER → 2024-08-24 | Outpatient (CLI) | payer MEDICARE, OTHER ==
[~2024-08-24] MED LIST changes: +DOXY-440 PO; -DOXY-444 PO
[2024-08-24 17:30] LABS: THEOPHYLLINE LEVEL 6.1 UG/ML (10.0-20.0)
[2024-08-24 17:35] LABS: MAGNESIUM LEVEL 1.5 MG/DL (1.8-2.4)
== END ==
LOC: M WUC 11:39
PROVIDERS: ATTEND Internal Medicine Pulmonary Disease
DX: J43.9 Emphysema, unspecified (principal); G47.33 Obstructive sleep apnea (adult) (pediatric)

== ENCOUNTER → 2024-10-12 | Outpatient (CLI) | payer MEDICARE, OTHER | LOC: M WUC 14:58 | PROVIDERS: ATTEND Internal Medicine Pulmonary Disease | DX: J45.20 Mild intermittent asthma, uncomplicated (principal) ==

== ENCOUNTER → 2024-12-07 | Outpatient (CLI) | payer OTHER ==
[2024-12-07 17:34] LABS: HEMATOCRIT 45.6 % (42.0-52.0); HEMOGLOBIN 14.3 g/dl (13.5-17.5); MEAN CORPUSCULAR HEMOGLOBIN 30.4 pg (27.0-33.0); MEAN CORPUSCULAR HGB CONC 31.4 g/dl (32.0-36.5); PLATELET COUNT, AUTOMATED 147 10^3/uL (150-450)
[2024-12-07 18:22] LABS: BLOOD UREA NITROGEN 23 MG/DL (9-23); CALCIUM LEVEL 9.8 MG/DL (8.3-10.6); CARBON DIOXIDE LEVEL 37 MMOL/L (20-31); CHLORIDE LEVEL 104 MMOL/L (98-107); CREATININE FOR GFR 0.86 MG/DL (0.70-1.30); GLOMERULAR FILTRATION RATE > 60.0 (>42); GLUCOSE, FASTING 146 MG/DL (74-106); POTASSIUM SERUM 4.4 MMOL/L (3.5-5.1); SODIUM LEVEL 147 MMOL/L (136-145)
== END ==
LOC: M WUC 14:49
PROVIDERS: ATTEND Physician Assistant
DX: I42.0 Dilated cardiomyopathy (principal); I48.4 Atypical atrial flutter

== ENCOUNTER 2025-05-26 09:53 | Inpatient (IN) | payer OTHER ==
[~2025-05-26] VITALS: Ht 182.9 cm; Wt 95.7 kg
[~2025-05-26 09:53] MED LIST changes: -AMIO200T49 PO; +AMIO200T54 PO
[2025-05-26] MEDS: ALBUTEROL SULFATE 2.5 MG/0.5 ML INH CONCENTRATE NEB SOLN NEB PRN (10:11)
[2025-05-26 10:21] LABS: ABG pH (ARTERIAL) 7.323 UNITS (7.350-7.450)
[2025-05-26 10:22] LABS: ABG BASE EXCESS 1.9 (-2.0-2.0); ABG HCO3 29.4 MMOL/L (22.0-26.0); ABG O2 SATURATION 98.2 % (95.0-99.0); ABG PARTIAL PRESSURE CO2 57.9 mmHg (35.0-45.0); ABG PARTIAL PRESSURE O2 144.3 mmHg (75.0-100.0); ABG STANDARD HCO3 26.2 MMOL/L. (22.0-26.0); ABG TOTAL CO2 31.1 MMOL/L (23.0-31.0)
[2025-05-26 10:31] LABS: BASO # 0.0 10^3/uL (0.0-0.2); BASO % 0.3 % (0.0-1.0); EOS # 0.3 10^3/uL (0.0-0.5); EOS % 1.7 % (0.0-3.0); LYMPH # 1.5 10^3/uL (1.5-5.0); LYMPH % 9.7 % (24.0-44.0); MONO # 0.7 10^3/uL (0.0-0.8); MONO % 4.4 % (2.0-8.0); NEUTROPHILS # 12.6 10^3/uL (1.5-8.5); NEUTROPHILS % 83.4 % (36.0-66.0); PLATELET COUNT, AUTOMATED 142 10^3/uL (150-450)
[2025-05-26] MEDS: ACETAMINOPHEN *IV* 1,000 MG in IV 1 EA IV ONE (10:52)
[2025-05-26 11:01] LABS: ALT/SGPT 38 U/L (7.0-40); AST/SGOT 53 U/L (<34); CALCIUM LEVEL 9.1 MG/DL (8.3-10.6); CARBON DIOXIDE LEVEL 32 MMOL/L (20-31); CHLORIDE LEVEL 101 MMOL/L (98-107); CK-MB VALUE MASS < 1.0 NG/ML (<3.6); CREATININE FOR GFR 0.85 MG/DL (0.70-1.30); GLOMERULAR FILTRATION RATE > 90.0 (>42); POTASSIUM SERUM 5.2 MMOL/L (3.5-5.1); SODIUM LEVEL 143 MMOL/L (136-145)
[2025-05-26 11:03] LABS: CPK CREATINE PHOSPHOKINASE 49 U/L (46-171)
[2025-05-26] MEDS ORDERED: ISOVUE-370 76% 100 ML VIAL As Ordered ONE (11:35)
[2025-05-26 12:14] LABS: ABG BASE EXCESS 4.0 (-2.0-2.0); ABG HCO3 30.4 MMOL/L (22.0-26.0); ABG O2 SATURATION 94.1 % (95.0-99.0); ABG PARTIAL PRESSURE CO2 53.1 mmHg (35.0-45.0); ABG PARTIAL PRESSURE O2 72.5 mmHg (75.0-100.0); ABG STANDARD HCO3 28.0 MMOL/L. (22.0-26.0); ABG TOTAL CO2 32.0 MMOL/L (23.0-31.0); ABG pH (ARTERIAL) 7.375 UNITS (7.350-7.450)
[2025-05-26] MEDS: NS (Normal Saline) 0.9% 1,000 ML IV ONE (13:17)
[2025-05-26] MEDS: PIPERACILLIN/TAZOBACTAM SOD 4.5 GM in DEXTROSE 5% (D5W) ADV/MINI-BAG 50 ML IV ONE (13:17)
[2025-05-26] MEDS ORDERED: ACETAMINOPHEN 325 MG TAB PO PRN (14:40)
[2025-05-26] MEDS ORDERED: THEO300T33 PO (14:53)
[2025-05-26] MEDS ORDERED: THERTAB52 PO (14:53)
[2025-05-26] MEDS ORDERED: PRED5TA PO (14:53)
[2025-05-26] MEDS ORDERED: MAGN400C PO (14:53)
[2025-05-26] MEDS ORDERED: PYRIDOXINE PO (14:53)
[2025-05-26] MEDS ORDERED: HOME MED LIST COMPLETE! XX SCH (14:55)
[2025-05-26] MEDS: ALBUTEROL SULFATE 2.5 MG/0.5 ML INH CONCENTRATE NEB SOLN NEB SCH (16:04)
[2025-05-26] MEDS ORDERED: DOXYCYCLINE HYCLATE 100 MG in DEXTROSE 5% (D5W) MINI-BAG PLU 100 ML IV SCH (17:00)
[2025-05-26] MEDS: cefTRIAXone SOD 2 GM in DEXTROSE 5% (D5W) ADV/MINI-BAG 50 ML IV SCH (17:37)
[2025-05-26] MEDS: PANTOPRAZOLE 40MG VIAL IV SCH (17:37)
[2025-05-26] MEDS: BUDESONIDE 0.5 MG/2 ML INHALATION SUSPENSION INH SCH (19:55)
[2025-05-26] MEDS: GLYCOPYRROLATE INJ 0.2 MG/ML 2 ML VIAL NEB SCH (20:00)
[2025-05-26 21:00] VITALS: BP 114/59; TEMP 98.5; O2SAT 96
[2025-05-26] MEDS: LATANOPROST 0.005% OPHTH SOLN 2.5 ML OU SCH (21:00)
[2025-05-26] MEDS: SENNOSIDES/DOCUSATE SODIUM 8.6 MG/50MG TAB PO SCH (21:00)
[2025-05-26] MEDS ORDERED: DOCUSATE SODIUM 100 MG CAPSULE PO SCH (21:00)
[2025-05-26] MEDS: APIXABAN 5 MG TAB PO SCH (21:25)
[2025-05-26] MEDS: ATORVASTATIN 20 MG TAB PO SCH (21:25)
[2025-05-26] MEDS: DOXYCYCLINE HYCLATE 100 MG TABLET PO SCH (21:25)
[2025-05-26 22:18] LABS: VENOUS BASE EXCESS 1.8 (-2.0-2.0); VENOUS HCO3 31.5 MMOL/L (23.0-27.0); VENOUS O2 SATURATION 62.1 % (60.0-80.0); VENOUS PARTIAL PRESSURE CO2 76.0 mmHg (38.0-50.0); VENOUS PARTIAL PRESSURE O2 35.1 mmHg (30.0-50.0); VENOUS PH 7.235 UNITS (7.330-7.430); VENOUS STANDARD HCO3 25.3 MMOL/L; VENOUS TOTAL CO2 33.8 MMOL/L (24.0-28.0)
[2025-05-26 22:27] LABS: PLATELET COUNT, AUTOMATED 117 10^3/uL (150-450)
[2025-05-26 22:37] LABS: ESTIMATED AVERAGE GLUCOSE 143.0 MG/DL (60-110)
[2025-05-26 22:57] LABS: CALCIUM LEVEL 9.2 MG/DL (8.3-10.6); CARBON DIOXIDE LEVEL 32.0 MMOL/L (20-31); CHLORIDE LEVEL 101.0 MMOL/L (98-107); CREATININE FOR GFR 0.89 MG/DL (0.70-1.30); GLOMERULAR FILTRATION RATE 88.8 (>42); MAGNESIUM LEVEL 1.4 MG/DL (1.8-2.4); POTASSIUM SERUM 4.9 MMOL/L (3.5-5.1); SODIUM LEVEL 144.0 MMOL/L (136-145)
[2025-05-26] MEDS: NS 500 ML IV ONE (23:45)
[2025-05-26] MEDS: MAGNESIUM OXIDE 400 MG TAB PO ONE (23:45)
[2025-05-26] MEDS: MAG SULF 1GM/100ML (MAG RUN) 1 GM in IV 1 EA IV ONE (23:50)
[2025-05-27] VITALS (21 sets, daily range): BP systolic 120–145; BP diastolic 57–70; TEMP 97.3–97.8; O2SAT 94–100
[2025-05-27] MEDS ORDERED: VANCOMYCIN HCL 1,000 MG in IV FLUID PLACE HOLDER 1 EA IV SCH (00:05)
[2025-05-27] MEDS ORDERED: VANCOMYCIN HCL 1,000 MG in IV FLUID PLACE HOLDER 1 EA IV ONE (00:05)
[2025-05-27] MEDS: VANCOMYCIN HCL 2,000 MG, VIAL MATE ADAPTER 1 EACH in NS 500 ML IV ONE (00:39)
[2025-05-27] MEDS: NS 500 ML IV ONE (03:19)
[2025-05-27 04:47] LABS: BASO # 0.0 10^3/uL (0.0-0.2); BASO % 0.1 % (0.0-1.0); EOS # 0.0 10^3/uL (0.0-0.5); EOS % 0.0 % (0.0-3.0); LYMPH # 0.6 10^3/uL (1.5-5.0); LYMPH % 4.4 % (24.0-44.0); MONO # 0.3 10^3/uL (0.0-0.8); MONO % 2.2 % (2.0-8.0); NEUTROPHILS # 12.6 10^3/uL (1.5-8.5); NEUTROPHILS % 92.9 % (36.0-66.0); PLATELET COUNT, AUTOMATED 111 10^3/uL (150-450)
[2025-05-27] MEDS: CEFEPIME HCL 2 GM in DEXTROSE 5% (D5W) ADV/MINI-BAG 50 ML IV SCH ×2 (04:58→15:32)
[2025-05-27 05:35] LABS: CALCIUM LEVEL 8.6 MG/DL (8.3-10.6); CARBON DIOXIDE LEVEL 28 MMOL/L (20-31); CHLORIDE LEVEL 105 MMOL/L (98-107); CREATININE FOR GFR 0.74 MG/DL (0.70-1.30); GLOMERULAR FILTRATION RATE > 90.0 (>42); POTASSIUM SERUM 4.4 MMOL/L (3.5-5.1); SODIUM LEVEL 143 MMOL/L (136-145)
[2025-05-27] MEDS: MONTELUKAST 10 MG TAB PO SCH (09:14)
[2025-05-27] MEDS: MAGNESIUM OXIDE 400 MG TAB PO SCH (09:15)
[2025-05-27 09:28] LABS: ABG BASE EXCESS 1.3 (-2.0-2.0); ABG HCO3 28.0 MMOL/L (22.0-26.0); ABG O2 SATURATION 97.1 % (95.0-99.0); ABG PARTIAL PRESSURE CO2 53.4 mmHg (35.0-45.0); ABG PARTIAL PRESSURE O2 108.4 mmHg (75.0-100.0); ABG STANDARD HCO3 25.6 MMOL/L. (22.0-26.0); ABG TOTAL CO2 29.7 MMOL/L (23.0-31.0); ABG pH (ARTERIAL) 7.338 UNITS (7.350-7.450)
[2025-05-27] MEDS: THEOPHYLLINE 100 MG PO SCH (09:42)
[2025-05-27] MEDS: MAG SULF 1GM/100ML (MAG RUN) 1 GM in IV 1 EA IV ONE (09:42)
[2025-05-27] MEDS: VANCOMYCIN HCL 1,000 MG, VIAL MATE ADAPTER 1 EACH in NS 250 ML IV SCH (12:03)
[2025-05-28] VITALS (27 sets, daily range): BP systolic 125–151; BP diastolic 58–68; TEMP 97–98.4; O2SAT 95–100
[2025-05-28 05:35] LABS: BASO # 0.0 10^3/uL (0.0-0.2); BASO % 0.1 % (0.0-1.0); EOS # 0.0 10^3/uL (0.0-0.5); EOS % 0.0 % (0.0-3.0); LYMPH # 0.9 10^3/uL (1.5-5.0); LYMPH % 5.2 % (24.0-44.0); MONO # 0.8 10^3/uL (0.0-0.8); MONO % 4.9 % (2.0-8.0); NEUTROPHILS # 14.8 10^3/uL (1.5-8.5); NEUTROPHILS % 89.1 % (36.0-66.0); PLATELET COUNT, AUTOMATED 144 10^3/uL (150-450)
[2025-05-28 05:58] LABS: CALCIUM LEVEL 9.2 MG/DL (8.3-10.6); CARBON DIOXIDE LEVEL 32 MMOL/L (20-31); CHLORIDE LEVEL 102 MMOL/L (98-107); CREATININE FOR GFR 0.71 MG/DL (0.70-1.30); GLOMERULAR FILTRATION RATE > 90.0 (>42); MAGNESIUM LEVEL 1.7 MG/DL (1.8-2.4); POTASSIUM SERUM 5.0 MMOL/L (3.5-5.1); SODIUM LEVEL 144 MMOL/L (136-145)
[2025-05-28] MEDS: MAG SULF 1GM/100ML (MAG RUN) 1 GM in IV 1 EA IV ONE (09:12)
[2025-05-28] MEDS: ALPRAZolam 0.5 MG TAB PO PRN ×2 (14:36→22:58)
[2025-05-29] VITALS (24 sets, daily range): BP systolic 112–144; BP diastolic 58–64; TEMP 97.4–98.2; O2SAT 94–100
[2025-05-29 05:58] LABS: BASO # 0.0 10^3/uL (0.0-0.2); BASO % 0.1 % (0.0-1.0); EOS # 0.0 10^3/uL (0.0-0.5); EOS % 0.0 % (0.0-3.0); LYMPH # 0.6 10^3/uL (1.5-5.0); LYMPH % 4.3 % (24.0-44.0); MONO # 0.7 10^3/uL (0.0-0.8); MONO % 4.9 % (2.0-8.0); NEUTROPHILS # 12.7 10^3/uL (1.5-8.5); NEUTROPHILS % 89.8 % (36.0-66.0); PLATELET COUNT, AUTOMATED 153 10^3/uL (150-450)
[2025-05-29 06:22] LABS: C REACTIVE PROTEIN QUANTITATIV 1.79 MG/DL (<1.0); CALCIUM LEVEL 9.3 MG/DL (8.3-10.6); CARBON DIOXIDE LEVEL 34 MMOL/L (20-31); CHLORIDE LEVEL 101 MMOL/L (98-107); CREATININE FOR GFR 0.73 MG/DL (0.70-1.30); GLOMERULAR FILTRATION RATE > 90.0 (>42); POTASSIUM SERUM 4.5 MMOL/L (3.5-5.1); SODIUM LEVEL 142 MMOL/L (136-145)
[2025-05-29] MEDS: predniSONE 20 MG TAB PO SCH (08:59)
[2025-05-29] MEDS ORDERED: ISOVUE-300 61% 100 ML VIAL As Ordered ONE (14:31)
[2025-05-29 15:16] LABS: ERYTHROCYTE SEDIMENTATION RATE 11 mm/hr (0-20)
[2025-05-29] MEDS: cefTRIAXone SOD 2 GM in DEXTROSE 5% (D5W) ADV/MINI-BAG 50 ML IV SCH (15:24)
[2025-05-30] VITALS (26 sets, daily range): BP systolic 116–146; BP diastolic 55–86; TEMP 97.3–98.9; O2SAT 65–99
[2025-05-30 06:09] LABS: BASO # 0.0 10^3/uL (0.0-0.2); BASO % 0.2 % (0.0-1.0); EOS # 0.0 10^3/uL (0.0-0.5); EOS % 0.0 % (0.0-3.0); LYMPH # 1.0 10^3/uL (1.5-5.0); LYMPH % 8.4 % (24.0-44.0); MONO # 1.1 10^3/uL (0.0-0.8); MONO % 9.4 % (2.0-8.0); NEUTROPHILS # 9.9 10^3/uL (1.5-8.5); NEUTROPHILS % 80.9 % (36.0-66.0); PLATELET COUNT, AUTOMATED 158 10^3/uL (150-450)
[2025-05-30 06:31] LABS: CALCIUM LEVEL 9.3 MG/DL (8.3-10.6); CARBON DIOXIDE LEVEL 37 MMOL/L (20-31); CHLORIDE LEVEL 102 MMOL/L (98-107); CREATININE FOR GFR 0.77 MG/DL (0.70-1.30); GLOMERULAR FILTRATION RATE > 90.0 (>42); MAGNESIUM LEVEL 1.6 MG/DL (1.8-2.4); POTASSIUM SERUM 4.2 MMOL/L (3.5-5.1); SODIUM LEVEL 146 MMOL/L (136-145)
[2025-05-30] MEDS: MAG SULF 1GM/100ML (MAG RUN) 1 GM in IV 1 EA IV SCH (08:10)
[2025-05-30] MEDS: OMEPRAZOLE 20MG CAP PO SCH (09:00)
[2025-05-30] MEDS: FLUTICASONE PROPIONATE 0.05% NASAL SPRAY 16 GM NARES SCH (09:00)
[2025-05-30] MEDS ORDERED: LORATADINE 10 MG TAB PO PRN (10:55)
[2025-05-30] MEDS: TIOTROPIUM BROM 2.5MCG/ACTUATION 4GM INH INH SCH (11:19)
[2025-05-30] MEDS: MULTIVITAMINS/MINERALS THERAP 1 TAB PO SCH (11:28)
[2025-05-30] MEDS: VITAMIN D 1,000 INTERNATIONAL UNITS TABLET PO SCH (11:28)
[2025-05-30] MEDS: ENTRESTO 24-26 MG TABLET (SACUBITRIL/VALSARTAN) PO SCH (20:18)
[2025-05-31 05:59] VITALS: BP 119/70; TEMP 98.1; O2SAT 99
[2025-05-31 08:00] VITALS: BP 120/72; TEMP 98.1; O2SAT 97
[2025-05-31 09:16] LABS: BASO # 0.0 10^3/uL (0.0-0.2); BASO % 0.2 % (0.0-1.0); EOS # 0.1 10^3/uL (0.0-0.5); EOS % 0.7 % (0.0-3.0); LYMPH # 1.6 10^3/uL (1.5-5.0); LYMPH % 12.5 % (24.0-44.0); MONO # 1.4 10^3/uL (0.0-0.8); MONO % 10.5 % (2.0-8.0); NEUTROPHILS # 9.8 10^3/uL (1.5-8.5); NEUTROPHILS % 74.7 % (36.0-66.0); PLATELET COUNT, AUTOMATED 154 10^3/uL (150-450)
[2025-05-31 09:35] LABS: CALCIUM LEVEL 9.1 MG/DL (8.3-10.6); CARBON DIOXIDE LEVEL 39 MMOL/L (20-31); CHLORIDE LEVEL 100 MMOL/L (98-107); CREATININE FOR GFR 0.65 MG/DL (0.70-1.30); GLOMERULAR FILTRATION RATE > 90.0 (>42); MAGNESIUM LEVEL 1.6 MG/DL (1.8-2.4); POTASSIUM SERUM 3.6 MMOL/L (3.5-5.1); SODIUM LEVEL 145 MMOL/L (136-145)
[2025-05-31] MEDS: MAG SULF 1GM/100ML (MAG RUN) 1 GM in IV 1 EA IV SCH (10:52)
[2025-05-31 12:00] VITALS: BP 117/72; TEMP 98.2; O2SAT 96
[2025-05-31 21:00] VITALS: O2SAT 96
[2025-05-31 21:03] VITALS: BP 152/78; TEMP 98.2; O2SAT 96
[2025-05-31 22:00] VITALS: O2SAT 95
[2025-06-01] VITALS (14 sets, daily range): BP systolic 93–117; BP diastolic 51–75; TEMP 98.1–98.2; O2SAT 96–100
[2025-06-01 08:10] LABS: BASO # 0.0 10^3/uL (0.0-0.2); BASO % 0.2 % (0.0-1.0); EOS # 0.0 10^3/uL (0.0-0.5); EOS % 0.0 % (0.0-3.0); LYMPH # 0.8 10^3/uL (1.5-5.0); LYMPH % 6.6 % (24.0-44.0); MONO # 0.9 10^3/uL (0.0-0.8); MONO % 7.0 % (2.0-8.0); NEUTROPHILS # 10.9 10^3/uL (1.5-8.5); NEUTROPHILS % 85.2 % (36.0-66.0); PLATELET COUNT, AUTOMATED 151 10^3/uL (150-450)
[2025-06-01] MEDS: predniSONE 10 MG TAB PO SCH (09:00)
[2025-06-01 09:07] LABS: CALCIUM LEVEL 9.0 MG/DL (8.3-10.6); CARBON DIOXIDE LEVEL 36 MMOL/L (20-31); CHLORIDE LEVEL 100 MMOL/L (98-107); CREATININE FOR GFR 0.67 MG/DL (0.70-1.30); GLOMERULAR FILTRATION RATE > 90.0 (>42); MAGNESIUM LEVEL 2.1 MG/DL (1.8-2.4); POTASSIUM SERUM 4.6 MMOL/L (3.5-5.1); SODIUM LEVEL 145 MMOL/L (136-145)
[2025-06-02] VITALS (13 sets, daily range): BP systolic 121–129; BP diastolic 68–71; TEMP 98.1–98.2; O2SAT 96–100
[2025-06-02 07:25] LABS: BASO # 0.0 10^3/uL (0.0-0.2); BASO % 0.2 % (0.0-1.0); EOS # 0.6 10^3/uL (0.0-0.5); EOS % 5.4 % (0.0-3.0); LYMPH # 1.4 10^3/uL (1.5-5.0); LYMPH % 12.1 % (24.0-44.0); MONO # 1.0 10^3/uL (0.0-0.8); MONO % 8.7 % (2.0-8.0); NEUTROPHILS # 8.3 10^3/uL (1.5-8.5); NEUTROPHILS % 72.2 % (36.0-66.0); PLATELET COUNT, AUTOMATED 158 10^3/uL (150-450)
[2025-06-02 07:50] LABS: CALCIUM LEVEL 9.2 MG/DL (8.3-10.6); CARBON DIOXIDE LEVEL 39 MMOL/L (20-31); CHLORIDE LEVEL 98 MMOL/L (98-107); CREATININE FOR GFR 0.80 MG/DL (0.70-1.30); GLOMERULAR FILTRATION RATE > 90.0 (>42); MAGNESIUM LEVEL 1.8 MG/DL (1.8-2.4); POTASSIUM SERUM 4.1 MMOL/L (3.5-5.1); SODIUM LEVEL 145 MMOL/L (136-145)
[2025-06-03] VITALS (15 sets, daily range): BP systolic 106–129; BP diastolic 53–80; TEMP 98.2–98.3; O2SAT 95–100
[2025-06-03 07:14] LABS: PLATELET COUNT, AUTOMATED 151 10^3/uL (150-450)
[2025-06-03 07:44] LABS: ALT/SGPT 37 U/L (7.0-40); AST/SGOT 18 U/L (<34); CALCIUM LEVEL 9.3 MG/DL (8.3-10.6); CARBON DIOXIDE LEVEL 34 MMOL/L (20-31); CHLORIDE LEVEL 102 MMOL/L (98-107); CREATININE FOR GFR 0.73 MG/DL (0.70-1.30); GLOMERULAR FILTRATION RATE > 90.0 (>42); POTASSIUM SERUM 4.7 MMOL/L (3.5-5.1); SODIUM LEVEL 144 MMOL/L (136-145)
[2025-06-03] MEDS: SYMBICORT 160/4.5MCG INHALER 6GM INH SCH (19:52)
[2025-06-03] MEDS: ALBUTEROL SULFATE 2.5 MG/0.5 ML INH CONCENTRATE NEB SOLN NEB PRN (19:52)
[2025-06-04] VITALS (16 sets, daily range): BP systolic 119–122; BP diastolic 62–72; TEMP 98.1–98.2; O2SAT 92–99
[2025-06-04] MEDS: SIMETHICONE 80MG CHEW TAB PO PRN (05:52)
[2025-06-05] VITALS (20 sets, daily range): BP systolic 106–151; BP diastolic 54–83; TEMP 98.1–98.4; O2SAT 94–100
[2025-06-05] MEDS ORDERED: LIDOCAINE 2% 100 MG/5 ML SDV (FOR ANES.) As Ordered ONE (18:02)
[2025-06-05] MEDS: CETACAINE SPRAY 5 GM As Ordered ONE (18:41)
[2025-06-06] VITALS (15 sets, daily range): BP systolic 131; BP diastolic 75; TEMP 98.1; O2SAT 94–99
[2025-06-06] MEDS ORDERED: PRED10TA2 PO (09:09)
[2025-06-06] MEDS ORDERED: IPRA0.00 INH (11:04)
[2025-06-06] MEDS ORDERED: PRED20TA PO (11:04)
[2025-06-06] MEDS: HEPARIN LOCK FLUSH 100 UNITS/ML 3 ML SYRINGE IV PRN (11:45)
[2025-06-06] MEDS: SODIUM CHLORIDE 0.9% INJ 10 ML SYR IV PRN (11:46)
== END 2025-06-06 13:05 | disposition home or self-care (01) | DRG 871 ==
LOC: M ED 09:53 → M ED INP 14:40 → M MS4PR 21:00 → M PCU 05-27 08:55 → M MS5PR 05-30 23:03
PROVIDERS: ADMIT Internal Medicine Nephrology; ATTEND Internal Medicine Nephrology
PROC: B245ZZ4 Ultrasonography of Left Heart, Transesophageal (ICD-10-PCS; principal; 2025-06-05 13:30)
DX: A40.9 Streptococcal sepsis, unspecified (principal); J96.21 Acute and chronic respiratory failure with hypoxia; J96.22 Acute and chronic respiratory failure with hypercapnia; J44.1 Chronic obstructive pulmonary disease with (acute) exacerbation; I50.22 Chronic systolic (congestive) heart failure; J44.0 Chronic obstructive pulmonary disease with (acute) lower respiratory infection; E87.20 Acidosis, unspecified; K21.9 Gastro-esophageal reflux disease without esophagitis; E78.5 Hyperlipidemia, unspecified; I48.91 Unspecified atrial fibrillation; E83.42 Hypomagnesemia; K59.00 Constipation, unspecified; K29.70 Gastritis, unspecified, without bleeding; H40.9 Unspecified glaucoma; Z92.21 Personal history of antineoplastic chemotherapy; Z92.3 Personal history of irradiation; Z85.46 Personal history of malignant neoplasm of prostate; Z85.118 Personal history of other malignant neoplasm of bronchus and lung; Z95.0 Presence of cardiac pacemaker; Z52.4 Kidney donor; Z87.442 Personal history of urinary calculi; Z79.899 Other long term (current) drug therapy; G47.33 Obstructive sleep apnea (adult) (pediatric)

== ENCOUNTER 2025-09-04 01:31 | Inpatient (IN) | payer OTHER, MEDICARE ==
[2025-09-04] VITALS (22 sets, daily range): BP systolic 113–133; BP diastolic 56–70; TEMP 97.5–98.2; O2SAT 90–100
[~2025-09-04] VITALS: Ht 182.9 cm; Wt 85.7 kg
[~2025-09-04 01:31] MED LIST changes: +IPRA0.00 INH; +MAGN400C PO; +PRED5TA PO; +PYRIDOXINE PO; +THEO300T33 PO; +THERTAB52 PO
[2025-09-04] MEDS: IPRATROPIUM 0.5 MG/ALBUTEROL 2.5 MG INH SOL UD 3 ML NEB ONE ×2 (01:44→01:48)
[2025-09-04 02:37] LABS: VENOUS BASE EXCESS 5.9 (-2.0-2.0); VENOUS HCO3 37.5 MMOL/L (23.0-27.0); VENOUS O2 SATURATION 42.2 % (60.0-80.0); VENOUS PARTIAL PRESSURE CO2 91.0 mmHg (38.0-50.0); VENOUS PARTIAL PRESSURE O2 26.0 mmHg (30.0-50.0); VENOUS PH 7.233 UNITS (7.330-7.430); VENOUS STANDARD HCO3 28.2 MMOL/L; VENOUS TOTAL CO2 40.3 MMOL/L (24.0-28.0)
[2025-09-04 02:39] LABS: BASO # 0.1 10^3/uL (0.0-0.2); BASO % 0.4 % (0.0-1.0); EOS # 0.2 10^3/uL (0.0-0.5); EOS % 1.6 % (0.0-3.0); LYMPH # 0.9 10^3/uL (1.5-5.0); LYMPH % 6.3 % (24.0-44.0); MONO # 0.9 10^3/uL (0.0-0.8); MONO % 7.0 % (2.0-8.0); NEUTROPHILS # 11.2 10^3/uL (1.5-8.5); NEUTROPHILS % 83.9 % (36.0-66.0); PLATELET COUNT, AUTOMATED 165 10^3/uL (150-450)
[2025-09-04 03:08] LABS: ALT/SGPT 25 U/L (7.0-40); AST/SGOT 23 U/L (<34); CALCIUM LEVEL 9.4 MG/DL (8.3-10.6); CARBON DIOXIDE LEVEL 37 MMOL/L (20-31); CHLORIDE LEVEL 93 MMOL/L (98-107); CK-MB VALUE MASS < 1.0 NG/ML (<3.6); CREATININE FOR GFR 0.89 MG/DL (0.70-1.30); GLOMERULAR FILTRATION RATE 88.3 (>42); POTASSIUM SERUM 4.5 MMOL/L (3.5-5.1); SODIUM LEVEL 139 MMOL/L (136-145)
[2025-09-04 03:13] LABS: CPK CREATINE PHOSPHOKINASE 27 U/L (46-171)
[2025-09-04] MEDS ORDERED: IPRATROPIUM 0.5 MG/ALBUTEROL 2.5 MG INH SOL UD 3 ML NEB PRN (04:15)
[2025-09-04] MEDS ORDERED: MOM 30 ML SUSPENSION UDC PO PRN (04:20)
[2025-09-04] MEDS ORDERED: ACETAMINOPHEN 325 MG TAB PO PRN (04:20)
[2025-09-04 04:47] LABS: CK-MB VALUE MASS 1.8 NG/ML (<3.6)
[2025-09-04 04:48] LABS: CPK CREATINE PHOSPHOKINASE 19.0 U/L (46-171); MB/CK RELATIVE INDEX 9.47 (< OR =4)
[2025-09-04] MEDS: cefTRIAXone SOD 1 GM in DEXTROSE 5% (D5W) ADV/MINI-BAG 50 ML IV SCH (05:00)
[2025-09-04] MEDS ORDERED: HOME MED LIST COMPLETE! XX SCH (05:20)
[2025-09-04] MEDS ORDERED: ACET-683 PO (05:42)
[2025-09-04] MEDS ORDERED: ROBI1LIQ9 PO (05:42)
[2025-09-04] MEDS: AZITHROMYCIN INJ 500 MG, VIAL MATE ADAPTER 1 EACH in NS 250 ML IV SCH (06:32)
[2025-09-04 06:36] LABS: VENOUS BASE EXCESS 8.6 (-2.0-2.0); VENOUS HCO3 35.6 MMOL/L (23.0-27.0); VENOUS O2 SATURATION 97.0 % (60.0-80.0); VENOUS PARTIAL PRESSURE CO2 59.3 mmHg (38.0-50.0); VENOUS PARTIAL PRESSURE O2 90.7 mmHg (30.0-50.0); VENOUS PH 7.396 UNITS (7.330-7.430); VENOUS STANDARD HCO3 32.3 MMOL/L; VENOUS TOTAL CO2 37.4 MMOL/L (24.0-28.0)
[2025-09-04] MEDS ORDERED: ALBUTEROL SULFATE 2.5 MG/0.5 ML INH CONCENTRATE NEB SOLN INH PRN (06:50)
[2025-09-04] MEDS ORDERED: LORATADINE 10 MG TAB PO PRN (06:50)
[2025-09-04] MEDS: MONTELUKAST 10 MG TAB PO SCH (08:28)
[2025-09-04] MEDS: MAGNESIUM OXIDE 400 MG TAB PO SCH (08:28)
[2025-09-04] MEDS: APIXABAN 5 MG TAB PO SCH (08:28)
[2025-09-04] MEDS: OMEPRAZOLE 20MG CAP PO SCH (08:28)
[2025-09-04] MEDS: DOCUSATE SODIUM 100 MG CAPSULE PO SCH (08:28)
[2025-09-04] MEDS: IPRATROPIUM 0.5 MG/ALBUTEROL 2.5 MG INH SOL UD 3 ML NEB SCH (08:32)
[2025-09-04] MEDS: BUDESONIDE 0.5 MG/2 ML INHALATION SUSPENSION NEB SCH (08:32)
[2025-09-04] MEDS: TIOTROPIUM BROM 2.5MCG/ACTUATION 4GM INH INH SCH (08:32)
[2025-09-04 12:29] LABS: VENOUS BASE EXCESS 5.7 (-2.0-2.0); VENOUS HCO3 33.5 MMOL/L (23.0-27.0); VENOUS O2 SATURATION 97.6 % (60.0-80.0); VENOUS PARTIAL PRESSURE CO2 63.0 mmHg (38.0-50.0); VENOUS PARTIAL PRESSURE O2 102.6 mmHg (30.0-50.0); VENOUS PH 7.343 UNITS (7.330-7.430); VENOUS STANDARD HCO3 29.6 MMOL/L; VENOUS TOTAL CO2 35.4 MMOL/L (24.0-28.0)
[2025-09-04 16:57] LABS: VENOUS BASE EXCESS 4.1 (-2.0-2.0); VENOUS HCO3 31.6 MMOL/L (23.0-27.0); VENOUS O2 SATURATION 98.2 % (60.0-80.0); VENOUS PARTIAL PRESSURE CO2 60.5 mmHg (38.0-50.0); VENOUS PARTIAL PRESSURE O2 135.8 mmHg (30.0-50.0); VENOUS PH 7.336 UNITS (7.330-7.430); VENOUS STANDARD HCO3 28.1 MMOL/L; VENOUS TOTAL CO2 33.5 MMOL/L (24.0-28.0)
[2025-09-04] MEDS: ENTRESTO 24-26 MG TABLET (SACUBITRIL/VALSARTAN) PO SCH (20:25)
[2025-09-04] MEDS: ATORVASTATIN 20 MG TAB PO SCH (20:25)
[2025-09-04] MEDS: LATANOPROST 0.005% OPHTH SOLN 2.5 ML OU SCH (22:07)
[2025-09-04] MEDS: ALPRAZolam 0.5 MG TAB PO PRN (23:26)
[2025-09-05] VITALS (26 sets, daily range): BP systolic 95–114; BP diastolic 58–68; TEMP 97.2–97.6; O2SAT 90–100
[2025-09-05 05:35] LABS: PLATELET COUNT, AUTOMATED 172 10^3/uL (150-450)
[2025-09-05 05:58] LABS: CALCIUM LEVEL 9.1 MG/DL (8.3-10.6); CARBON DIOXIDE LEVEL 33 MMOL/L (20-31); CHLORIDE LEVEL 96 MMOL/L (98-107); CREATININE FOR GFR 0.68 MG/DL (0.70-1.30); GLOMERULAR FILTRATION RATE > 90.0 (>42); MAGNESIUM LEVEL 1.6 MG/DL (1.8-2.4); POTASSIUM SERUM 4.3 MMOL/L (3.5-5.1); SODIUM LEVEL 140 MMOL/L (136-145)
[2025-09-05 08:45] LABS: C REACTIVE PROTEIN QUANTITATIV 12.97 MG/DL (<1.0)
[2025-09-05] MEDS: cefTRIAXone SOD 2 GM in DEXTROSE 5% (D5W) ADV/MINI-BAG 50 ML IV SCH (09:10)
[2025-09-05] MEDS: MAG SULF 1GM/100ML (MAG RUN) 1 GM in IV 1 EA IV ONE (09:21)
[2025-09-05] MEDS: AZITHROMYCIN 250 MG TABLET PO SCH (09:22)
[2025-09-05] MEDS: HEPARIN LOCK FLUSH 100 UNITS/ML 3 ML SYRINGE IV PRN (11:12)
[2025-09-06] VITALS (34 sets, daily range): BP systolic 102–123; BP diastolic 55–78; TEMP 97–98.2; O2SAT 89–99
[2025-09-06] MEDS: SODIUM CHLORIDE 0.9% INJ 10 ML SYR IV SCH (10:20)
[2025-09-06] MEDS: HEPARIN LOCK FLUSH 100 UNITS/ML 3 ML SYRINGE IV SCH (10:20)
[2025-09-06] MEDS: ALTEPLASE 2 MG/2 ML VIAL XX ONE ×2 (11:51→14:53)
[2025-09-06] MEDS: CALCIUM CARBONATE 500 MG CHEW U/D PO PRN (15:33)
[2025-09-07] VITALS (13 sets, daily range): BP systolic 108–119; BP diastolic 56–60; TEMP 97.5–98.1; O2SAT 89–99
[2025-09-07] MEDS: SODIUM CHLORIDE 0.9% INJ 10 ML SYR IV PRN (04:10)
[2025-09-07] MEDS ORDERED: PRED20TA PO (09:47)
[2025-09-07] MEDS ORDERED: SUCR1SS PO (09:48)
[2025-09-07] MEDS ORDERED: PRIL20TA2 PO (09:48)
[2025-09-07] MEDS ORDERED: PRED10TA2 PO (09:52)
[2025-09-07] MEDS ORDERED: SUCRALFATE SUSP 1GM/10ML UD PO SCH (12:00)
[2025-09-08] MEDS ORDERED: OMEPRAZOLE 20MG CAP PO SCH (09:00)
[2025-09-08] MEDS ORDERED: predniSONE 10 MG TAB PO SCH (09:00)
== END 2025-09-07 13:01 | disposition home health service (06) | DRG 191 ==
LOC: M ED 01:31 → M ED INP 01:32 → M ICU 05:57 → OBSVTOIN 11:03 → M PCU 21:55
PROVIDERS: ADMIT Student in an Organized Health Care Education/Training Program; ATTEND General Practice
DX: J44.1 Chronic obstructive pulmonary disease with (acute) exacerbation (principal); I50.22 Chronic systolic (congestive) heart failure; J96.11 Chronic respiratory failure with hypoxia; I48.91 Unspecified atrial fibrillation; E78.5 Hyperlipidemia, unspecified; K21.9 Gastro-esophageal reflux disease without esophagitis; I11.0 Hypertensive heart disease with heart failure; H40.9 Unspecified glaucoma; G47.33 Obstructive sleep apnea (adult) (pediatric); E83.42 Hypomagnesemia; Z92.21 Personal history of antineoplastic chemotherapy; Z92.3 Personal history of irradiation; J43.9 Emphysema, unspecified; Z85.118 Personal history of other malignant neoplasm of bronchus and lung; Z95.0 Presence of cardiac pacemaker; Z85.46 Personal history of malignant neoplasm of prostate; D72.829 Elevated white blood cell count, unspecified; K44.9 Diaphragmatic hernia without obstruction or gangrene; Z98.49 Cataract extraction status, unspecified eye; Z79.899 Other long term (current) drug therapy; Z79.52 Long term (current) use of systemic steroids

== ENCOUNTER → 2025-10-02 | Outpatient (REF) | payer MEDICARE, OTHER ==
[~2025-10-02] MED LIST changes: +ACET-683 PO; +ACYC30OI TOP; -ACYC5OIN TOP; +PRIL20TA2 PO; +ROBI1LIQ9 PO; +SUCR1SS PO
[2025-10-02 18:28] LABS: APPEARANCE, URINE TURBID (CLEAR); BACTERIA, URINE AUTO NEGATIVE (NEGATIVE); BILIRUBIN, URINE AUTO NEGATIVE (NEGATIVE); BLOOD, URINE BLOOD NEGATIVE (NEGATIVE); GLUCOSE, URINE (UA) AUTO NEGATIVE (NEGATIVE); KETONE, URINE AUTO NEGATIVE (NEGATIVE); LEUKOCYTE ESTERASE, URINE AUTO NEGATIVE (NEGATIVE); MUCUS, URINE LARGE (NEGATIVE); NITRITE, URINE AUTO NEGATIVE (NEGATIVE); PROTEIN, URINE AUTO 1+ mg/dL (NEGATIVE); RBC, URINE AUTO 0 /HPF (0-3); SPECIFIC GRAVITY URINE AUTO 1.021 (1.002-1.035); SQUAMOUS EPITHELIAL CELL UR AU 0 /HPF (0-6); UROBILINOGEN, URINE AUTO 0.2 mg/dL (0.0-2.0); WBC, URINE AUTO 0 /HPF (0-3)
== END ==
LOC: M LAB REF 17:35
PROVIDERS: ATTEND Internal Medicine Pulmonary Disease
DX: J43.9 Emphysema, unspecified (principal); Z79.899 Other long term (current) drug therapy